=== PATIENT | male | born 1945 | race Caucasian/White ===

== ENCOUNTER 2017-03-26 17:44 | Observation (INO) | payer MEDICARE ==
[~2017-03-26] VITALS: Ht 172.7 cm; Wt 102.0 kg
[2017-03-26 17:46] VITALS: BP 129/64; PULSE 99; RESP 20; TEMP 98.8; O2SAT 95
[2017-03-26 19:42] VITALS: BP 140/72; PULSE 98; RESP 18; O2SAT 96
--- NOTE | 2017-03-26 19:59 | RADRPT ---
EXAM DATE/TIME: 03/26/2017 19:46 [place] COMPARISON: No previous studies available for comparison. INDICATIONS : Short of breath. MEDICAL HISTORY : None. SURGICAL HISTORY : CABG. ENCOUNTER: Initial ACUITY: 4 - 6 days PAIN SCORE: 0/10 LOCATION: Bilateral chest FINDINGS: There is evidence of prior median sternotomy probable cardiac surgery CABG. The heart is normal size with mild atherosclerotic changes of aorta. Vascularity is normal clear lung keller with hypoaeration .. CONCLUSION: No acute disease. Joey Harris MD on March 26, 2017 at 19:57 Board Certified Radiologist. This report was verified electronically.
[2017-03-26] MEDS ORDERED: SODIUM CHLORIDE 0.9% FLUSH 10 ML FLUSH IVF PRN (20:00)
[2017-03-26] MEDS ORDERED: FUROSEMIDE 40 MG/4 ML VIAL IVP ONE (20:00)
[2017-03-26 20:02] VITALS: RESP 18; O2SAT 96
--- NOTE | 2017-03-26 20:03 | PD ---
HPI Chief Complaint: Abnormal Results Time Seen by Provider: 19:38 Travel History International Travel<30 days: No Contact w/Intl Traveler<30days: No Traveled to known affect area: No History of Present Illness HPI 71-year-old male sent in by his PCP for reports of increased pedal edema as well as shortness of breath and dyspnea with exertion. Patient was recently diagnosed with atrial fibrillation and started on Elaquist this past week. Patient is also started on Bumex of an unknown dose, but the patient states his symptoms have not improved. Patient denies pain, fever, or abdominal discomfort. Currently he has no pain at all. He has no known drug allergies. PFSH Social History Alcohol Use: Yes Tobacco Use: No Substance Use: No Allergies-Medications (Allergen,Severity, Reaction): Coded Allergies: No Known Allergies (Unverified , 03/26/17) Reported Meds & Prescriptions Reported Meds & Active Scripts Active Reported Lorazepam 0.5 Mg Tab 0.5 Mg PO Q8H PRN Oxycontin (Oxycodone HCl) 30 Mg Tab 30 Mg PO Q8HR Oxycodone (Oxycodone HCl) 5 Mg Tab 5 Mg PO Q8HR Calcitriol 0.25 Mcg Cap 0.25 Mcg PO MWF Stool Softener (Docusate Calcium) 240 Mg Cap 250 Mg PO HS Allopurinol 100 Mg Tab 100 Mg PO HS Doxazosin (Doxazosin Mesylate) 2 Mg Tab 2 Mg PO HS Testosterone Topical (Testosterone) 50 Mg/5 Gram (1 %) Gel 100 Mg TOPICAL DAILY Pantoprazole (Pantoprazole Sodium) 40 Mg Tab 40 Mg PO DAILY Crestor (Rosuvastatin Calcium) 20 Mg Tab 20 Mg PO DAILY Eliquis (Apixaban) 5 Mg Tab 5 Mg PO BID Metoprolol Tartrate 100 Mg Tab 100 Mg PO BID Wellbutrin SR 12 HR (Bupropion HCl) 150 Mg Tab 150 Mg PO Q12HR Lisinopril 5 Mg Tab 5 Mg PO DAILY Vitamin D3 (Cholecalciferol) 2,000 Unit Cap 2,000 Units PO DAILY Review of Systems Except as stated in HPI: all other systems reviewed are Neg General / Constitutional: No: Fever Eyes: No: Visual changes HENT: No: Headaches Cardiovascular: Positive: Irregular Rhythm, Tachycardia, Dyspnea on exertion, Edema, No: Chest Pain or Discomfort, Palpitations, Diaphoresis, Syncope, Varicosities, Cyanosis, Varicosities, Phlebitis, Claudication Respiratory: Positive: Shortness of Breath Gastrointestinal: No: Abdominal Pain Genitourinary: No: Dysuria Musculoskeletal: No: Pain Skin: No Rash Neurologic: No: Weakness Psychiatric: No: Depression Endocrine: No: Polydipsia Hematologic/Lymphatic: No: Easy Bruising Physical Exam Narrative GENERAL: Moderately obese male in no acute distress. SKIN: Warm and dry. Normal color. Normal turgor. No rash. HEAD: Atraumatic. Normocephalic. EYES: Pupils equal and round. No scleral icterus. No injection or drainage. ENT: No nasal bleeding or discharge. Mucous membranes pink and moist. Pharynx is clear. Airway is patent. NECK: Trachea midline. Supple and nontender without lymphadenopathy. CARDIOVASCULAR: Irregular rate and irregular rhythm. No murmurs appreciated. RESPIRATORY: No accessory muscle use. Clear to auscultation. No wheezes or crackles appreciated Breath sounds equal bilaterally. GASTROINTESTINAL: Abdomen soft, non-tender, nondistended. Hepatic and splenic margins not palpable. MUSCULOSKELETAL: Extremities without clubbing, cyanosis, or 1-2+ edema is noted in both lower extremities. No obvious deformities. NEUROLOGICAL: Awake and alert. No obvious cranial nerve deficits. Motor grossly within normal limits. Five out of 5 muscle strength in the arms and legs. Normal speech. PSYCHIATRIC: Appropriate mood and affect; insight and judgment normal. Data Data Last Documented VS Vital Signs Date Time Temp Pulse Resp B/P (MAP) Pulse Ox O2 Delivery O2 Flow Rate FiO2 03/26/17 20:02 18 96 Room Air 03/26/17 19:42 98 03/26/17 17:46 98.8 Orders Orders Chest, Pa & Lat (03/26/17 ) Complete Blood Count With Diff (03/26/17 19:58) Comprehensive Metabolic Panel (03/26/17 19:58) B-Type Natriuretic Peptide (03/26/17 19:58) Act Partial Throm Time (Ptt) (03/26/17 19:58) Prothrombin Time / Inr (Pt) (03/26/17 19:58) Magnesium (Mg) (03/26/17 19:58) Ckmb (Isoenzyme) Profile (03/26/17 19:58) Troponin I (03/26/17 19:58) Urinalysis - C+S If Indicated (03/26/17 19:58) Iv Access Insert/Monitor (03/26/17 19:58) Electrocardiogram (03/26/17 19:58) Ecg Monitoring (03/26/17 19:58) Oximetry (03/26/17 19:58) Oxygen Administration (03/26/17 19:58) Sodium Chloride 0.9% Flush (Ns Flush) (03/26/17 20:00) Furosemide Inj (Lasix Inj) (03/26/17 20:00) CKMB (03/26/17 20:05) CKMB% (03/26/17 20:05) Place In Observation (03/26/17 ) Vital Signs (Adult) Q4H (03/26/17 22:11) Activity Oob With Assistance (03/26/17 22:11) Piece Cutter / Telemetry .CONTINUOUS (03/26/17 22:11) Intake + Output VERONICA.QSHIFT (03/26/17 22:11) Diet Heart Healthy (03/27/17 Breakfast) Diet Renal (03/27/17 Breakfast) Sodium Chloride 0.9% Flush (Ns Flush) (03/26/17 22:15) Sodium Chloride 0.9% Flush (Ns Flush) (03/27/17 09:00) Basic Metabolic Panel (Bmp) (03/27/17 06:00) Complete Blood Count With Diff (03/27/17 06:00) Pt Request For Service (03/26/17 22:11) Case Management Consult (03/26/17 22:11) Naloxone Inj (Narcan Inj) (03/26/17 22:15) Labs Laboratory Tests Test 03/26/17 20:05 03/26/17 20:54 White Blood Count 6.1 TH/MM3 Red Blood Count 5.26 MIL/MM3 Hemoglobin 13.3 GM/DL Hematocrit 41.7 % Mean Corpuscular Volume 79.4 FL Mean Corpuscular Hemoglobin 25.2 PG Mean Corpuscular Hemoglobin Concent 31.8 % Red Cell Distribution Width 16.6 % Platelet Count 152 TH/MM3 Mean Platelet Volume 7.7 FL Neutrophils (%) (Auto) 66.5 % Lymphocytes (%) (Auto) 22.3 % Monocytes (%) (Auto) 9.3 % Eosinophils (%) (Auto) 1.3 % Basophils (%) (Auto) 0.6 % Neutrophils # (Auto) 4.0 TH/MM3 Lymphocytes # (Auto) 1.3 TH/MM3 Monocytes # (Auto) 0.6 TH/MM3 Eosinophils # (Auto) 0.1 TH/MM3 Basophils # (Auto) 0.0 TH/MM3 CBC Comment DIFF FINAL Differential Comment Prothrombin Time 12.6 SEC Prothromb Time International Ratio 1.1 RATIO Activated Partial Thromboplast Time 33.8 SEC Blood Urea Nitrogen 25 MG/DL Creatinine 4.09 MG/DL Random Glucose 94 MG/DL Total Protein 6.7 GM/DL Albumin 2.9 GM/DL Calcium Level 8.7 MG/DL Magnesium Level 1.6 MG/DL Alkaline Phosphatase 71 U/L Aspartate Amino Transf (AST/SGOT) 25 U/L Alanine Aminotransferase (ALT/SGPT) 27 U/L Total Bilirubin 0.5 MG/DL Sodium Level 137 MEQ/L Potassium Level 4.1 MEQ/L Chloride Level 101 MEQ/L Carbon Dioxide Level 27.9 MEQ/L Anion Gap 8 MEQ/L Estimat Glomerular Filtration Rate 15 ML/MIN Total Creatine Kinase 258 U/L Creatine Kinase MB 2.4 NG/ML Troponin I 0.05 NG/ML B-Type Natriuretic Peptide 78 PG/ML Urine Color YELLOW Urine Turbidity HAZY Urine pH 5.5 Urine Specific [place] 1.008 Urine Protein NEG mg/dL Urine Glucose (UA) NEG mg/dL Urine Ketones NEG mg/dL Urine Occult Blood NEG Urine Nitrite NEG Urine Bilirubin NEG Urine Urobilinogen LESS THAN 2.0 MG/DL Urine Leukocyte Esterase NEG Urine RBC 2 /hpf Urine WBC 4 /hpf Urine Squamous Epithelial Cells <1 /hpf Urine Amorphous Sediment RARE Urine Bacteria RARE /hpf Urine Mucus FEW /lpf Microscopic Urinalysis Comment CULT NOT INDICATED MDM Medical Decision Making Medical Screen Exam Complete: Yes Emergency Medical Condition: Yes Medical Record Reviewed: Yes Differential Diagnosis Dyspnea with exertion. Bilateral pedal edema. A. fib. CHF. Narrative Course Patient appears medically stable at time of exam. EKG shows ectopic atrial tachycardia, this is reviewed with Dr. Gould. Labs ordered including CBC, CMP, cardiac panel, proBNP, and urinalysis. Chest x-ray is ordered. This x-ray shows no acute process per radiologist. CBC is unremarkable. Chemistries are remarkable for a BUN of 25, and a creatinine of 4.09 with an estimated GFR 15. BNP is 78. Albumin is 2.9. Coagulation studies showed PT of 12.6, APTT of 33.8, INR 1.1. Urinalysis is unremarkable. Call was placed to the hospitalist for his elevated creatinine. There is no previous creatinine on record to compare to. arrives and informs me that they were sent from the [facility] apprent[facility] office, Dr. Duran Austin, and his BUN was 3.0 with a GFR of 20 2 days ago. Patient discussed with Dr. Miller, who agrees to admit the patient to observation. Diagnosis Primary Impression: Elevated serum creatinine Additional Impression: Dyspnea on exertion Admitting Information Admitting Physician Requests: Observation Condition: Stable Ernst Ackerman Mar 26, 2017 20:03
[2017-03-26] MEDS ORDERED: OXYC-392 PO (20:35)
[2017-03-26] MEDS ORDERED: LISI-519 PO (20:35)
[2017-03-26] MEDS ORDERED: APIX5TAB PO (20:35)
[2017-03-26] MEDS ORDERED: OXYC30TA62 PO (20:35)
[2017-03-26] MEDS ORDERED: TEST2.5G TOPICAL (20:35)
[2017-03-26] MEDS ORDERED: VITA2000 PO (20:35)
[2017-03-26] MEDS ORDERED: DOCU1CAP25 PO (20:35)
[2017-03-26] MEDS ORDERED: DOXA1TAB35 PO (20:35)
[2017-03-26] MEDS ORDERED: CALC0.25 PO (20:35)
[2017-03-26] MEDS ORDERED: ALLO100T PO (20:35)
[2017-03-26] MEDS ORDERED: PANT40TA3 PO (20:35)
[2017-03-26] MEDS ORDERED: ROSU20 PO (20:35)
[2017-03-26] MEDS ORDERED: METO100T PO (20:35)
[2017-03-26] MEDS ORDERED: BUPR150CR PO (20:35)
[2017-03-26] MEDS ORDERED: LORA-373 PO (20:37)
[2017-03-26 21:01] LABS: BASOPHIL % 0.6 % (0.0-2.0); EOSINOPHIL # 0.1 TH/MM3 (0-0.4); EOSINOPHIL % 1.3 % (0.0-4.0); HEMATOCRIT 41.7 % (39.0-51.0); HEMO FLAGS DIFF FINAL; LYMPH % 22.3 % (9.0-44.0); LYMPHOCYTE # 1.3 TH/MM3 (1.0-4.8); MEAN CELL VOLUME 79.4 FL (80.0-100.0); MEAN CORPUSCULAR HEMOGLOBIN 25.2 PG (27.0-34.0); MEAN CORPUSCULAR HGB CONC 31.8 % (32.0-36.0); MONO % 9.3 % (0.0-8.0); NEUT % 66.5 % (16.0-70.0); PLATELET COUNT 152 TH/MM3 (150-450); RED BLOOD COUNT 5.26 MIL/MM3 (4.50-5.90); RED CELL DISTRIBUTION WIDTH 16.6 % (11.6-17.2); WHITE BLOOD COUNT 6.1 TH/MM3 (4.0-11.0)
[2017-03-26 21:08] LABS: APTT (PATIENT) 33.8 SEC (24.3-30.1); INTERNATIONAL NORMALIZED RATIO 1.1 RATIO; PROTHROMBIN TIME - PATIENT 12.6 SEC (9.8-11.6)
[2017-03-26 21:12] LABS: ANION GAP 8 MEQ/L (5-15); AST (GOT) 25 U/L (15-37); BICARBONATE 27.9 MEQ/L (21.0-32.0); BLOOD UREA NITROGEN 25 MG/DL (7-18); CHLORIDE 101 MEQ/L (98-107); GLOMERULAR FILTRATION RATE 15 ML/MIN (>89); MAGNESIUM 1.6 MG/DL (1.5-2.5); POTASSIUM 4.1 MEQ/L (3.5-5.1); SODIUM (NA) 137 MEQ/L (136-145)
[2017-03-26 21:13] LABS: ALT (GPT) 27 U/L (12-78)
[2017-03-26 21:17] LABS: ALKALINE PHOSPHATASE 71 U/L (45-117); CREATINE KINASE 258 U/L (39-308); TOTAL BILIRUBIN ADULT 0.5 MG/DL (0.2-1.0)
[2017-03-26 21:29] LABS: CKMB 2.4 NG/ML (0.5-3.6)
[2017-03-26 21:33] LABS: BACTERIA, URINE RARE /hpf; BLOOD, URINE NEG (NEG); COMMENT (UR) CULT NOT INDICATED; CULTURE IF INDICATED CULT NOT INDICATED; GLUCOSE,URINE NEG (NEG); KETONE, URINE NEG (NEG); MUCUS URINE FEW /lpf (OCC); NITRITE,URINE NEG (NEG); PH, URINE 5.5 (5.0-8.5); SQUAMOUS EPITHELIAL CELL URINE <1 /hpf (0-5); URINE COLOR YELLOW (YELLW/STRAW)
[2017-03-26] MEDS ORDERED: SODIUM CHLORIDE 0.9% FLUSH 10 ML FLUSH IV FLUSH PRN (22:15)
[2017-03-26] MEDS ORDERED: NALOXONE HCL 0.4 MG/ML AMP IV PUSH PRN (22:15)
[2017-03-26 22:46] VITALS: BP 102/58; PULSE 95; RESP 18; O2SAT 95
[2017-03-27] VITALS (9 sets, daily range): BP systolic 94–149; BP diastolic 55–80; PULSE 77–107; RESP 16–18; TEMP 98–99.7; O2SAT 90–95
[2017-03-27] MEDS ORDERED: SODIUM CHLOR 0.9% 1000 ML INJ 1,000 ML IV SCH (06:15)
--- NOTE | 2017-03-27 06:27 | HHI.HP ---
[facility] Ernst [facility] M.D. Admission Diagnosis Acute Renal Insufficientcy/Afib Diagnoses: Travel History International Travel<30 Days: No Contact w/Intl Traveler <30 Da: No Traveled to Known Affected Are: No History of Present Illness was feeling weak was somewhat taking too long to do simple things like balancing checkbook "got stuck" doing simple things has had problems with kidney issues- with creatinine getting skyrocketing was seen by his resource center teacher and sent here has had cabg in 2006 and not sure whether to do with this or combination of kidney and heart weakness kept continuing no nausea/ no vomiting/ no diarrhea no balck stool or red stool no urination problem no chest pain but did have some shortness of breath- wasnt even sure about it, until someone asked him in er was having dyspnea walking from mailbox to home also c/o bilateral LE swelling at ankles and lower lee with some redness and pitting edema c/o if only during physical exam- was forgetting to mention prior no on antibiotics no trauma Review of Systems Except as stated in HPI: all other systems reviewed are Neg Past Family Social History Past Medical History htn cad- cabg 2006 afib- recently diagnosed- chronic anticoagulation on eliquis renal artery stent- placed 2006- ckd Past Surgical History cabg 2007 renal artery stent in 2006 tonsilectomy at 6 yo right hand sx cholecystectomy 2003 Allergies: Coded Allergies: No Known Allergies (Unverified , 03/26/17) Family History mother may have had kidney problems, but not sure Social History used to smoke, quit 30yrs ago denies etoh abuse or drug abuse Physical Exam Vital Signs Vital Signs Date Time Temp Pulse Resp B/P (MAP) Pulse Ox O2 Delivery O2 Flow Rate FiO2 03/27/17 03:16 98.8 100 18 106/55 (72) 91 03/27/17 03:02 101 03/27/17 00:43 99.7 107 18 104/62 (76) 90 03/26/17 22:56 03/26/17 22:46 95 18 102/58 (73) 95 Room Air 03/26/17 20:02 18 96 Room Air 03/26/17 20:02 96 Room Air 03/26/17 19:42 98 18 140/72 (94) 96 Room Air 03/26/17 17:46 98.8 99 20 129/64 (85) 95 Room Air Physical Exam GENERAL: This is a well-nourished, well-developed patient, in no apparent distress. SKIN: bilateral LE redness, warmth, up to mid lee, bilateral pitting 2+ edema around ankle HEAD: Atraumatic. Normocephalic. No temporal or scalp tenderness. EYES: Pupils equal round and reactive. Extraocular motions intact. No scleral icterus. No injection or drainage. ENT: Nose without bleeding, purulent drainage or septal hematoma. Airway patent. NECK: Trachea midline. No JVD CARDIOVASCULAR: Regular rate and rhythm without murmurs, gallops, or rubs. RESPIRATORY: Clear to auscultation. Breath sounds equal bilaterally. No wheezes , rales, or rhonchi. GASTROINTESTINAL: Abdomen soft, non-tender, nondistended. No hepato-splenomegaly , or palpable masses. No guarding. MUSCULOSKELETAL: Extremities without clubbing, cyanosis, or edema. No calf tenderness. NEUROLOGICAL: Awake and alert. Motor and sensory grossly within normal limits. Normal speech. Laboratory Laboratory Tests Test 03/26/17 20:05 03/26/17 20:54 White Blood Count 6.1 Red Blood Count 5.26 Hemoglobin 13.3 Hematocrit 41.7 Mean Corpuscular Volume 79.4 Mean Corpuscular Hemoglobin 25.2 Mean Corpuscular Hemoglobin Concent 31.8 Red Cell Distribution Width 16.6 Platelet Count 152 Mean Platelet Volume 7.7 Neutrophils (%) (Auto) 66.5 Lymphocytes (%) (Auto) 22.3 Monocytes (%) (Auto) 9.3 Eosinophils (%) (Auto) 1.3 Basophils (%) (Auto) 0.6 Neutrophils # (Auto) 4.0 Lymphocytes # (Auto) 1.3 Monocytes # (Auto) 0.6 Eosinophils # (Auto) 0.1 Basophils # (Auto) 0.0 CBC Comment DIFF FINAL Differential Comment Prothrombin Time 12.6 Prothromb Time International Ratio 1.1 Activated Partial Thromboplast Time 33.8 Blood Urea Nitrogen 25 Creatinine 4.09 Random Glucose 94 Total Protein 6.7 Albumin 2.9 Calcium Level 8.7 Magnesium Level 1.6 Alkaline Phosphatase 71 Aspartate Amino Transf (AST/SGOT) 25 Alanine Aminotransferase (ALT/SGPT) 27 Total Bilirubin 0.5 Sodium Level 137 Potassium Level 4.1 Chloride Level 101 Carbon Dioxide Level 27.9 Anion Gap 8 Estimat Glomerular Filtration Rate 15 Total Creatine Kinase 258 Creatine Kinase MB 2.4 Troponin I 0.05 B-Type Natriuretic Peptide 78 Urine Color YELLOW Urine Turbidity HAZY Urine pH 5.5 Urine Specific [place] 1.008 Urine Protein NEG Urine Glucose (UA) NEG Urine Ketones NEG Urine Occult Blood NEG Urine Nitrite NEG Urine Bilirubin NEG Urine Urobilinogen LESS THAN 2.0 Urine Leukocyte Esterase NEG Urine RBC 2 Urine WBC 4 Urine Squamous Epithelial Cells <1 Urine Amorphous Sediment RARE Urine Bacteria RARE Urine Mucus FEW Microscopic Urinalysis Comment CULT NOT INDICATED Result Diagram: 03/26/17200403/26/172004 Imaging Last 48 hours Impressions Chest X-Ray 03/26/17 0000 Signed Impressions: Service Date/Time: Sunday, March 26, 2017 19:46 - CONCLUSION: No acute disease. MD Roslyn Wadsworthi VTE Risk Assessment Caprini VTE Risk Assessment: Mod/High Risk (score >= 2) Caprini Risk Assessment Model Point Value = 1 Point Value = 2 Point Value = 3 Point Value = 5 Age 41-60 Minor surgery BMI > 25 kg/m2 Swollen legs Varicose veins or History of unexplained or recurrent spontaneous Oral contraceptives or hormone replacement Sepsis (< 1 month) Serious lung disease, including pneumonia (< 1 month) Abnormal pulmonary function Acute myocardial infarction Congestive heart failure (< 1 month) History of inflammatory bowel disease Medical patient at bed rest Age 61-74 Arthroscopic surgery Major open surgery (> 45 min) Laparoscopic surgery (> 45 min) Malignancy Confined to bed (> 72 hours) Immobilizing plaster cast Central venous access Age >= 75 History of VTE Family history of VTE Factor V Leiden Prothrombin [id number] Lupus anticoagulant Anticardiolipin antibodies Elevated serum homocysteine Heparin-induced thrombocytopenia Other congenital or acquired thrombophilia Stroke (< 1 month) Elective arthroplasty Hip, pelvis, or leg fracture Acute spinal cord injury (< 1 month) Prophylaxis Regimen Total Risk Factor Score Risk Level Prophylaxis Regimen 0-1 Low Early ambulation 2 Moderate Order ONE of the following: *Sequential Compression Device (SCD) *Heparin 5000 units SQ BID 3-4 Higher Order ONE of the following medications: *Heparin 5000 units SQ TID *Enoxaparin/Lovenox 40 mg SQ daily (WT < 150 kg, CrCl > 30 mL/min) *Enoxaparin/Lovenox 30 mg SQ daily (WT < 150 kg, CrCl > 10-29 mL/min) *Enoxaparin/Lovenox 30 mg SQ BID (WT < 150 kg, CrCl > 30 mL/min) AND/OR *Sequential Compression Device (SCD) 5 or more Highest Order ONE of the following medications: *Heparin 5000 units SQ TID (Preferred with Epidurals) *Enoxaparin/Lovenox 40 mg SQ daily (WT < 150 kg, CrCl > 30 mL/min) *Enoxaparin/Lovenox 30 mg SQ daily (WT < 150 kg, CrCl > 10-29 mL/min) *Enoxaparin/Lovenox 30 mg SQ BID (WT < 150 kg, CrCl > 30 mL/min) AND *Sequential Compression Device (SCD) Assessment and Plan Assessment and Plan Impression: acute on chrnoic ckd : With symptoms of weakness/lethargy/occasional shortness of breath bilateral le cellulitis Plan: Will start patient on small dose of IV fluids to see if this acute decompensation is secondary to dehydration. Watch for fluid overload. His BNP is normal, chest x-ray is clear. So far not expecting CHF. Start patient on cefepime 1 g IV every 12 hours for bilateral lower extremity cellulitis. Resume rest of his home medications. DVT prophylaxis on Erika Lorenzana MD Mar 27, 2017 06:27
[2017-03-27] MEDS ORDERED: LORazepam 0.5 MG TAB PO PRN (06:45)
[2017-03-27] MEDS: SODIUM CHLORIDE 0.9% FLUSH 10 ML FLUSH IV FLUSH SCH ×2 (09:00→21:49)
[2017-03-27] MEDS ORDERED: CHOLECALCIFEROL (VIT D3) 1000 UNIT TAB PO SCH (09:00)
[2017-03-27] MEDS ORDERED: CALCITRIOL 0.25 MCG CAP PO SCH (09:00)
[2017-03-27 09:07] LABS: AUTOMATED NEUTROPHIL # 4.6 TH/MM3 (1.8-7.7); BASOPHIL # 0.1 TH/MM3 (0-0.2); BASOPHIL % 0.8 % (0.0-2.0); EOSINOPHIL # 0.1 TH/MM3 (0-0.4); EOSINOPHIL % 1.3 % (0.0-4.0); HEMATOCRIT 39.1 % (39.0-51.0); HEMO FLAGS DIFF FINAL; LYMPH % 18.5 % (9.0-44.0); LYMPHOCYTE # 1.2 TH/MM3 (1.0-4.8); MEAN CELL VOLUME 78.8 FL (80.0-100.0); MEAN CORPUSCULAR HEMOGLOBIN 25.6 PG (27.0-34.0); MEAN CORPUSCULAR HGB CONC 32.5 % (32.0-36.0); MONO % 9.4 % (0.0-8.0); PLATELET COUNT 144 TH/MM3 (150-450); RED BLOOD COUNT 4.96 MIL/MM3 (4.50-5.90); RED CELL DISTRIBUTION WIDTH 16.2 % (11.6-17.2); WHITE BLOOD COUNT 6.5 TH/MM3 (4.0-11.0)
[2017-03-27 09:26] LABS: BICARBONATE 28.1 MEQ/L (21.0-32.0); POTASSIUM 4.3 MEQ/L (3.5-5.1)
[2017-03-27] MEDS: CEFEPIME INJ 1,000 MG in SODIUM CHLORIDE 0.9% INJ 100 ML IV SCH (10:03)
[2017-03-27] MEDS: APIXABAN 5 MG TABLET PO SCH ×2 (10:04→21:48)
[2017-03-27] MEDS: METOPROLOL TARTRATE 100 MG TAB PO SCH ×2 (10:05→21:47)
[2017-03-27] MEDS: buPROPion HCL 150 MG SUSTAINED RELEASE TAB PO SCH ×2 (10:05→21:47)
[2017-03-27] MEDS: PANTOPRAZOLE SOD 40 MG DELAYED RELEASE TAB PO SCH (10:06)
[2017-03-27] MEDS: ATORVASTATIN 40 MG TAB PO SCH (10:06)
--- NOTE | 2017-03-27 11:01 | HHI.PR ---
Subjective Remarks Follow up for acute renal failure, confusion, cellulitis. The patient is seen with his at bedside. She reports the patient's creatinine was just around 2 a few weeks ago, only this week it increased above 4. The patient and believe his mentation is slightly better today however he is still forgetful at times. They also believe his bilateral lower extremity erythema and edema is slightly improved overnight. Denies any fevers/chills. Denies any chest pain. He does report shortness of breath, worse with exertion. He has not yet attempted ambulation today. He has no other medical complaints to report at this time. Objective Vitals Vital Signs Date Time Temp Pulse Resp B/P (MAP) Pulse Ox O2 Delivery O2 Flow Rate FiO2 03/27/17 08:00 98.7 100 18 116/65 (82) 92 03/27/17 03:16 98.8 100 18 106/55 (72) 91 03/27/17 03:02 101 03/27/17 00:43 99.7 107 18 104/62 (76) 90 03/26/17 22:56 03/26/17 22:46 95 18 102/58 (73) 95 Room Air 03/26/17 20:02 18 96 Room Air 03/26/17 20:02 96 Room Air 03/26/17 19:42 98 18 140/72 (94) 96 Room Air 03/26/17 17:46 98.8 99 20 129/64 (85) 95 Room Air Result Diagram: 03/27/17 0757 03/27/17 0757 Imaging Last Impressions Chest X-Ray 03/26/17 0000 Signed Impressions: Service Date/Time: Sunday, March 26, 2017 19:46 - CONCLUSION: No acute disease. Joey Harris MD Objective Remarks GENERAL: Well-nourished, well-developed pleasant elderly male patient in [facility]. SKIN: Warm and dry. No rash. HEENT: Normocephalic. Atraumatic. Pupils equal and round. Mucous membranes pink and moist. CARDIOVASCULAR: Regular rate and rhythm. S1, S2 noted. No murmur appreciated. RESPIRATORY: No accessory muscle use. Clear to auscultation. No crackles. Breath sounds equal bilaterally. GASTROINTESTINAL: Abdomen soft, non-tender, nondistended. Normoactive bowel sounds x4. MUSCULOSKELETAL: No obvious deformities. Bilateral lower extremities from ankles to mid lee with mild erythema and 1+ pitting edema. NEUROLOGICAL: Awake and alert. No obvious cranial nerve deficits. Motor grossly within normal limits. 5/5 muscle strength in bilateral upper and lower extremities. Normal speech. PSYCHIATRIC: Appropriate mood and affect; insight and judgment normal. Medications and IVs Current Medications Medications (Trade) Dose Ordered Sig/Argenis Route Start Time Stop Time Status Last Admin (NS Flush) 2 ml UNSCH PRN IVF 03/26/17 20:00 (NS Flush) 2 ml UNSCH PRN IV FLUSH 03/26/17 22:15 (NS Flush) 2 ml BID IV FLUSH 03/27/17 09:00 (Narcan Inj) 0.4 mg UNSCH PRN IV PUSH 03/26/17 22:15 Sodium Chloride 1,000 ml @ 84 mls/hr [id number] IV 03/27/17 06:15 (Zyloprim) 100 mg HS PO 03/27/17 21:00 (Eliquis) 5 mg BID PO 03/27/17 09:00 03/27/17 10:04 (Wellbutrin Sr) 150 mg Q12HR PO 03/27/17 09:00 03/27/17 10:05 (Rocaltrol) 0.25 mcg BID PO 03/27/17 09:00 (Vitamin D3) 2,000 units DAILY PO 03/27/17 09:00 03/27/17 10:04 (Surfak) 250 mg HS PO 03/27/17 21:00 (Cardura) 2 mg HS PO 03/27/17 21:00 (Ativan) 0.5 mg Q8H PRN PO 03/27/17 06:45 (Lopressor) 100 mg BID PO 03/27/17 09:00 03/27/17 10:05 (Protonix) 40 mg DAILY PO 03/27/17 09:00 03/27/17 10:06 (OxyCONTIN CR) 30 mg Q8HR PO 03/27/17 14:00 (Lipitor) 40 mg DAILY PO 03/27/17 09:00 03/27/17 10:06 Cefepime HCl 1000 mg/Sodium Chloride 100 ml @ 200 mls/hr Q24H IV 03/27/17 08:00 03/27/17 10:03 (Roxicodone) 5 mg Q8HR PRN PO 03/27/17 14:00 A/P Assessment and Plan 71-year-old male with history of CKD, HTN, CAD s/p CABG, atrial fibrillation on Eliquis, renal artery stenosis s/p stent, presents with increasing confusion, BLE erythema, and worsening renal function, sent by state trooper Acute Renal Failure: with hx of CKD, previous baseline Creatinine around 2, now Cr 4.09. Unclear etiology. -Admitting physician ordered IVF to eval for acute decompensation secondary to dehydration -Monitor for fluid overload, CXR reviewed and clear, BNP wnl, no CHF expected -Consult patient's state trooper Dr. Austin -Monitor BMP daily -avoid nephrotoxins Bilateral Lower Extremity Cellulitis: BLE with erythema/edema. -Started on antibiotics with IV Cefepime -monitor for improvement -can likely transition to oral abx tomorrow Atrial Fibrillation: rate currently around 100. -continue patient's anticoagulation with Eliquis -continue patient's metoprolol 100mg bid, consider adjusting dosing for better rate control however caution with hypotension CAD/HTN/HLD: chronic, stable -continue home medications including metoprolol, statin -monitor BP All other medical conditions stable, continue home medications as appropriate. DVT Prophylaxis: on Eliquis Kalyn Zamora PA-C Mar 27, 2017 11:01 am
--- NOTE | 2017-03-27 12:32 | PD.CONS ---
HPI Service Nephrology Consult Requested By Dr. Miller Reason for Consult Known CKD. Sent from office for eval of ARF Primary Care Physician Ernst Hernandez M.D. History of Present Illness The patient is a 71 yo [place] male who is known to our services for CKD. He present to the office yesterday for early appointment as renal panel drawn on showed worsening of his renal functions. States that in the past month or so he has not been feeling well. confirms the same. He has been more fatigued, developing LE edema, chills, nausea, and poor appetite. He also endorses increased confusion and mental fogginess. For some time, has been experiencing some mid chest pain that he describes as a poking sensation that lasts only a second then resolves. Thought initially it was related to exercising, but started to occur even at rest. Has had cardiac work up in the past that was negative, but decided to order an at home departure clerk that picked up episode of atrial fibrillation. He went back to Dr. Sandra on 03/20 and was started on Eliquis 5mg BID. ECG in office there showed NSR. He went to his PCP on 03/22 and was started on Bumex 1mg daily for his LE edema, but did not improve. Had labs drawn on 03/22 that showed a rise in SCr at 3.01 ( baseline 2.3) and he called office for early appointment. On exam yesterday, he had evidence of significant fluid retention. Given his rapid decline and clinical appearance, he was advised to come to the ED for evaluation. 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 Had renal doppler study performed 11/09/16 that was nondiagnostic of restenosis of right renal artery secondary to stent placement and could not rule out left sided stenosis. CTA nor MRA was opted for at that point given severe impairment in renal functions. Incidentally noted was a 1.3cm lesion in left mid-cortex that is noted as complex cyst versus solid mass that was confirmed with noncontrast MRI on 11/14/16; recommended to follow up in 6 months for stability, Feeling better on exam today, but is notably frustrated with current events. Says he just wants an answer to what is going on. Received Lasix 40mg IVP x1 last evening. Noted IVF ordered, however, patient says was only started this AM. Started on Cefepime for suspected LE cellulitis. Admitting SCr 4.09 with eGFR at 15. Slight improvement overnight to 3.77 and eGFR 15 Baseline SCr 2.3 with eGFR 27 (Tracey Webb) Review of Systems Constitutional: COMPLAINS OF: Fatigue, Weight gain (10 lbs in 2 months), Chills , Change in appetite Cardiovascular: COMPLAINS OF: Lower Extremity Edema Gastrointestinal: COMPLAINS OF: Nausea (Tracey Webb) Past Family Social History Allergies: Coded Allergies: No Known Allergies (Unverified , 03/26/17) Past Medical History CKD stage 4 Right sided renal artery stenosis corrected with angioplasty and stent in 2006 HTN EN Nephrolithiasis Gout Hx of ischemic colitis Past Surgical History CABG Renal artery angioplasty with stenting Reported Medications Reported Meds & Active Scripts Active Reported Lorazepam 0.5 Mg Tab 0.5 Mg PO Q8H PRN Oxycontin (Oxycodone HCl) 30 Mg Tab 30 Mg PO Q8HR Oxycodone (Oxycodone HCl) 5 Mg Tab 5 Mg PO Q8HR Calcitriol 0.25 Mcg Cap 0.25 Mcg PO MWF Stool Softener (Docusate Calcium) 240 Mg Cap 250 Mg PO HS Allopurinol 100 Mg Tab 100 Mg PO HS Doxazosin (Doxazosin Mesylate) 2 Mg Tab 2 Mg PO HS Testosterone Topical (Testosterone) 50 Mg/5 Gram (1 %) Gel 100 Mg TOPICAL DAILY Pantoprazole (Pantoprazole Sodium) 40 Mg Tab 40 Mg PO DAILY Crestor (Rosuvastatin Calcium) 20 Mg Tab 20 Mg PO DAILY Eliquis (Apixaban) 5 Mg Tab 5 Mg PO BID Metoprolol Tartrate 100 Mg Tab 100 Mg PO BID Wellbutrin SR 12 HR (Bupropion HCl) 150 Mg Tab 150 Mg PO Q12HR Lisinopril 5 Mg Tab 5 Mg PO DAILY Vitamin D3 (Cholecalciferol) 2,000 Unit Cap 2,000 Units PO DAILY Active Ordered Medications Current Medications Medications (Trade) Dose Ordered Sig/Argenis Route Start Time Stop Time Status Last Admin (NS Flush) 2 ml UNSCH PRN IVF 03/26/17 20:00 (NS Flush) 2 ml UNSCH PRN IV FLUSH 03/26/17 22:15 (NS Flush) 2 ml BID IV FLUSH 03/27/17 09:00 03/27/17 09:00 (Narcan Inj) 0.4 mg UNSCH PRN IV PUSH 03/26/17 22:15 (Zyloprim) 100 mg HS PO 03/27/17 21:00 (Eliquis) 5 mg BID PO 03/27/17 09:00 03/27/17 10:04 (Wellbutrin Sr) 150 mg Q12HR PO 03/27/17 09:00 03/27/17 10:05 (Vitamin D3) 2,000 units DAILY PO 03/27/17 09:00 03/27/17 10:04 (Surfak) 250 mg HS PO 03/27/17 21:00 (Cardura) 2 mg HS PO 03/27/17 21:00 (Ativan) 0.5 mg Q8H PRN PO 03/27/17 06:45 (Lopressor) 100 mg BID PO 03/27/17 09:00 03/27/17 10:05 (Protonix) 40 mg DAILY PO 03/27/17 09:00 03/27/17 10:06 (OxyCONTIN CR) 30 mg Q8HR PO 03/27/17 14:00 03/27/17 14:26 (Lipitor) 40 mg DAILY PO 03/27/17 09:00 03/27/17 10:06 Cefepime HCl 1000 mg/Sodium Chloride 100 ml @ 200 mls/hr Q24H IV 03/27/17 08:00 03/27/17 10:03 (Roxicodone) 5 mg Q8HR PRN PO 03/27/17 14:00 (Rocaltrol) 0.25 mcg MoWeFr PO 03/28/17 21:00 Family History [place] Social History and lives locally with Denies tobacco use, no EtOH, no illicits (Tracey Webb) Physical Exam Vital Signs Vital Signs Date Time Temp Pulse Resp B/P (MAP) Pulse Ox O2 Delivery O2 Flow Rate FiO2 03/27/17 12:00 99.2 101 18 111/58 (75) 93 03/27/17 08:00 98.7 100 18 116/65 (82) 92 03/27/17 03:16 98.8 100 18 106/55 (72) 91 03/27/17 03:02 101 03/27/17 00:43 99.7 107 18 104/62 (76) 90 03/26/17 22:56 03/26/17 22:46 95 18 102/58 (73) 95 Room Air 03/26/17 20:02 18 96 Room Air 03/26/17 20:02 96 Room Air 03/26/17 19:42 98 18 140/72 (94) 96 Room Air 03/26/17 17:46 98.8 99 20 129/64 (85) 95 Room Air Physical Exam GENERAL: NAD. Slightly agitated. SKIN: Warm and dry. HEAD: Atraumatic. Normocephalic. EYES: Pupils equal and round. No scleral icterus. No injection or drainage. ENT: No nasal bleeding or discharge. Mucous membranes pink and moist. NECK: Trachea midline. No JVD. CARDIOVASCULAR: Slightly tachy at 102 in NSR RESPIRATORY: No accessory muscle use. Clear to auscultation. Breath sounds equal bilaterally. GASTROINTESTINAL: Abdomen soft, non-tender, nondistended. Hepatic and splenic margins not palpable. MUSCULOSKELETAL: Extremities without clubbing, cyanosis. Feet and anterior legs with erythema and warm to touch. 1+ pitting edema pre-tibial bilat NEUROLOGICAL: Awake and alert. Normal speech. PSYCHIATRIC: Appropriate mood and affect; insight and judgment normal. Laboratory Laboratory Tests Test 03/26/17 20:05 03/26/17 20:54 03/27/17 07:57 White Blood Count 6.1 6.5 Red Blood Count 5.26 4.96 Hemoglobin 13.3 12.7 Hematocrit 41.7 39.1 Mean Corpuscular Volume 79.4 78.8 Mean Corpuscular Hemoglobin 25.2 25.6 Mean Corpuscular Hemoglobin Concent 31.8 32.5 Red Cell Distribution Width 16.6 16.2 Platelet Count 152 144 Mean Platelet Volume 7.7 8.0 Neutrophils (%) (Auto) 66.5 70.0 Lymphocytes (%) (Auto) 22.3 18.5 Monocytes (%) (Auto) 9.3 9.4 Eosinophils (%) (Auto) 1.3 1.3 Basophils (%) (Auto) 0.6 0.8 Neutrophils # (Auto) 4.0 4.6 Lymphocytes # (Auto) 1.3 1.2 Monocytes # (Auto) 0.6 0.6 Eosinophils # (Auto) 0.1 0.1 Basophils # (Auto) 0.0 0.1 CBC Comment DIFF FINAL DIFF FINAL Differential Comment Prothrombin Time 12.6 Prothromb Time International Ratio 1.1 Activated Partial Thromboplast Time 33.8 Blood Urea Nitrogen 25 25 Creatinine 4.09 3.88 Random Glucose 94 92 Total Protein 6.7 Albumin 2.9 Calcium Level 8.7 8.7 Magnesium Level 1.6 Alkaline Phosphatase 71 Aspartate Amino Transf (AST/SGOT) 25 Alanine Aminotransferase (ALT/SGPT) 27 Total Bilirubin 0.5 Sodium Level 137 136 Potassium Level 4.1 4.3 Chloride Level 101 100 Carbon Dioxide Level 27.9 28.1 Anion Gap 8 8 Estimat Glomerular Filtration Rate 15 15 Total Creatine Kinase 258 Creatine Kinase MB 2.4 Troponin I 0.05 B-Type Natriuretic Peptide 78 Urine Color YELLOW Urine Turbidity HAZY Urine pH 5.5 Urine Specific [place] 1.008 Urine Protein NEG Urine Glucose (UA) NEG Urine Ketones NEG Urine Occult Blood NEG Urine Nitrite NEG Urine Bilirubin NEG Urine Urobilinogen LESS THAN 2.0 Urine Leukocyte Esterase NEG Urine RBC 2 Urine WBC 4 Urine Squamous Epithelial Cells <1 Urine Amorphous Sediment RARE Urine Bacteria RARE Urine Mucus FEW Microscopic Urinalysis Comment CULT NOT INDICATED (Tracey Webb) Result Diagram: 03/27/17 0757 03/27/17 0757 Imaging Last Impressions Renal Ultrasound 03/27/17 0000 Signed Impressions: Service Date/Time: Monday, March 27, 2017 13:41 - CONCLUSION: 1. No evidence of hydronephrosis. Right renal stent in place. 2. There is thinning of the renal parenchyma bilaterally. 3. Bilateral benign-appearing renal cysts. 4. Nonspecific hypoechoic density in the midpole left kidney measuring 1.8 cm. This could be a complex cyst versus mass. There are no prior studies for comparison. Recommend CT scan of the abdomen and pelvis with IV contrast for further evaluation. James Castellon MD Chest X-Ray 03/26/17 0000 Signed Impressions: Service Date/Time: Sunday, March 26, 2017 19:46 - CONCLUSION: No acute disease. Joey Harris MD (Tracey Webb) Assessment and Plan Problem List: (1) Acute renal failure (ARF) ICD Codes: N17.9 - Acute kidney failure, unspecified Plan: Etiology of renal failure is not entire clear at the present. He did improve overnight with diuretics, so there is a potential for cardiac decompensation given new diagnosis of atrial fibrillation and edema. We will request copy of echo done in January as he has no known hx of cardiomyopathy or CHF. There is a concern of potential re-stenosis of renal artery given his acute decline in renal functions and edema. Typically blood pressure becomes quite elevated, and his pressure has been well controlled and now slightly hypotensive. We are going to check urine for eosinophils as well as complement levels to help rule out cholesterol embolic disease. Will also check ANCA and serology. Renal US to be ordered to rule out obstructive process. Consideration to be given to check CT angiogram as this is a more sensitive and specific test to rule out renal artery stenosis, however, is at higher risk of further renal injury with contrast exposure that may require dialytic intervention. Hold IVF given edema. Will follow with labs in the AM. Medications should be adjusted for CKD. Avoid gadolinium (2) Hypertension ICD Codes: I10 - Essential (primary) hypertension Plan: with hypotension in house. Lisinopril held. Monitor. (3) History of renal artery stenosis ICD Codes: Z86.79 - Personal history of other diseases of the circulatory system Plan: in 2006. As above, may consider CTA to rule out restenosis (4) Cellulitis ICD Codes: L03.90 - Cellulitis, unspecified Plan: Tx as per primary BCx ordered (5) Edema ICD Codes: R60.9 - Edema, unspecified Plan: Improved overnight with Furosemide. Will obtain recent echo report done outpatient. May recommend opinion from Dr. Sandra whom the patient is known to. (6) Atrial fibrillation ICD Codes: I48.91 - Unspecified atrial fibrillation Plan: NSR at the present. Started on Eliquis 03/20 (7) Secondary hyperparathyroidism (of renal origin) ICD Codes: N25.81 - Secondary hyperparathyroidism of renal origin Plan: Continue on Calcitriol 0.25mcg MWF. (Tracey Webb) Assessment and Plan The exam, history, and the medical decision-making described in the above note were completed with the assistance of the STEPHANIE. I reviewed and agree with the findings presented. I attest that I had a [id number] encounter with the patient on the same day, and personally performed and documented my assessment and findings in the medical record. (Giuseppe Austin MD) Tracey Webb Mar 27, 2017 12:32 Giuseppe Austin MD Mar 28, 2017 19:08
[2017-03-27] MEDS: oxyCODONE HCL 10 MG CONTROLLED RELEASE TAB PO SCH ×2 (14:26→21:48)
--- NOTE | 2017-03-27 15:06 | RADRPT ---
EXAM DATE/TIME: 03/27/2017 13:41 [facility] COMPARISON: No previous studies available for comparison. EXTERNAL COMPARISON : [facility], US RENAL ARTERIES & VEINS DOPPLER, November 09, 2016, MRI ABDOMEN WITHOUT CONTRAST, Ju 2016. INDICATIONS : Abnormal labs. MEDICAL HISTORY : Myocardial infarction. Hypercholesterolemia. Gastroesophageal reflux disease. Hypertension. CAD. Slee p apnea. Colitis. Chronic constipation. SURGICAL HISTORY : Tonsillectomy. Cholecystectomy. Right hand surgery. Right knee surgery. Renal artery stent. ENCOUNTER: Initial ACUITY: 1 day PAIN SCORE: 0/10 LOCATION: Bilateral flank MEASUREMENTS: RIGHT KIDNEY: 9.6 x 5.9 x 5.2 cm 9.6 x 5.2 x 4.6 cm FINDINGS: RIGHT KIDNEY: There is some thinning of the renal cortex. There is no evidence of hydronephrosis. There is a stent in place in the right kidney. There is several benign-appearing cysts associated with the right kidne y. There is a cyst in the midpole measuring 1.2 cm. There is a cyst in the midpole measuring 6 mm. Th ere is a cyst in the upper upper pole measuring 2.6 cm. LEFT KIDNEY: There is thinning of the renal cortex. There is no hydronephrosis. There is a cyst measuring 2.8 x 3. 5 cm. There is another cyst measuring 1.5 cm. There is a hypoechoic area in the midpole measuring 1.8 cm. BLADDER: Within normal limits given the degree of distension. CONCLUSION: 1. No evidence of hydronephrosis. Right renal stent in place. 2. There is thinning of the renal parenchyma bilaterally. 3. Bilateral benign-appearing renal cysts. 4. Nonspecific hypoechoic density in the midpole left kidney measuring 1.8 cm. This could be a comple x cyst versus mass. There are no prior studies for comparison. Recommend CT scan of the abdomen and p luiz with IV contrast for further evaluation. James Castellon MD on March 27, 2017 at 15:00 Board Certified Radiologist. This report was verified electronically.
[2017-03-27] MEDS: DOXAZOSIN MESYLATE 2 MG TAB PO SCH (21:47)
[2017-03-27] MEDS: DOCUSATE CALCIUM 240 MG CAP PO SCH (21:47)
[2017-03-27] MEDS: ALLOPURINOL 100 MG TAB PO SCH (21:48)
[2017-03-27 22:35] LABS: TOTAL PROTEIN SPE 6.4 GM/DL (6.0-7.6)
[2017-03-27 22:48] LABS: KAPPA LAMBDA RATIO 1.79 (1.57-3.93)
[2017-03-28 03:41] VITALS: BP_SYST 100; BP_SYST 134; BP_DIAS 56; BP_DIAS 72; PULSE 73; PULSE 91; RESP 17; TEMP 98.3; TEMP 98.5; O2SAT 94; O2SAT 97
--- NOTE | 2017-03-28 07:56 | EKG ---
Date Performed: 03/26/2017 Time Performed: 20:11:48 PTAGE: 71 years EKG: ECTOPIC ATRIAL TACHYCARDIA BORDERLINE LEFT AXIS DEVIATION BORDERLINE LVH NONSPECIFIC ST-T C HANGE ABNORMAL ECG NO PREVIOUS TRACING DOCTOR: Marco Antonio Ames Interpretating Date/Time 03/28/2017 07:54:41
[2017-03-28] MEDS: CEFEPIME INJ 1,000 MG in SODIUM CHLORIDE 0.9% INJ 100 ML IV SCH (08:00)
[2017-03-28] MEDS: oxyCODONE HCL 10 MG CONTROLLED RELEASE TAB PO SCH ×3 (08:09→23:05)
[2017-03-28] MEDS ORDERED: CHOLECALCIFEROL (VIT D3) 5000 UNIT CAP PO ONE (08:15)
[2017-03-28 08:30] VITALS: BP 109/69; PULSE 92; RESP 20; TEMP 98.3; O2SAT 97
[2017-03-28 08:36] LABS: HEMATOCRIT 40.5 % (39.0-51.0); MEAN CELL VOLUME 78.7 FL (80.0-100.0); MEAN CORPUSCULAR HEMOGLOBIN 25.6 PG (27.0-34.0); MEAN CORPUSCULAR HGB CONC 32.5 % (32.0-36.0); PLATELET COUNT 148 TH/MM3 (150-450); RED BLOOD COUNT 5.14 MIL/MM3 (4.50-5.90); RED CELL DISTRIBUTION WIDTH 16.1 % (11.6-17.2); REVIEW FLAG FINAL
[2017-03-28] MEDS: APIXABAN 5 MG TABLET PO SCH ×2 (09:00→23:03)
[2017-03-28] MEDS: buPROPion HCL 150 MG SUSTAINED RELEASE TAB PO SCH ×2 (09:00→23:03)
[2017-03-28] MEDS: SODIUM CHLORIDE 0.9% FLUSH 10 ML FLUSH IV FLUSH SCH ×2 (09:00→21:00)
[2017-03-28] MEDS: ATORVASTATIN 40 MG TAB PO SCH (09:00)
[2017-03-28] MEDS: METOPROLOL TARTRATE 100 MG TAB PO SCH ×2 (09:00→23:03)
[2017-03-28] MEDS: PANTOPRAZOLE SOD 40 MG DELAYED RELEASE TAB PO SCH (09:00)
[2017-03-28 09:02] LABS: BICARBONATE 27.7 MEQ/L (21.0-32.0); POTASSIUM 3.7 MEQ/L (3.5-5.1)
--- NOTE | 2017-03-28 09:12 | HHI.PR ---
Subjective Remarks Follow up for acute renal failure, confusion, cellulitis. The patient is seen again with at bedside. She reports he looks much improved compared to the last few days. The patient reports his bilateral lower extremity edema and erythema has much improved. He denies any fevers/chills. He is urinating without difficulty. Denies any chest pain, shortness of breath, abdominal pain, nausea/vomiting. He has no other medical complaints at this time. Objective Vitals Vital Signs Date Time Temp Pulse Resp B/P (MAP) Pulse Ox O2 Delivery O2 Flow Rate FiO2 03/28/17 03:41 98.5 91 17 100/56 (71) 94 03/27/17 23:33 98.7 92 17 94/61 (72) 94 03/27/17 21:00 91 03/27/17 20:07 98.7 93 16 96/60 (72) 95 03/27/17 16:00 98.0 87 18 124/63 (83) 92 03/27/17 15:26 20 03/27/17 12:00 99.2 101 18 111/58 (75) 93 I/O 03/27/17 03/27/17 03/27/17 03/28/17 03/28/17 03/28/17 07:00 15:00 23:00 07:00 15:00 23:00 Intake Total 100 ml 1260 ml 400 ml Balance 100 ml 1260 ml 400 ml Intake Oral 960 ml 400 ml IV Total 100 ml 300 ml # Voids 5 4 # Bowel Movements 0 Result Diagram: 03/28/17 0710 03/28/17 0710 Imaging Last Impressions Renal Ultrasound 03/27/17 0000 Signed Impressions: Service Date/Time: Monday, March 27, 2017 13:41 - CONCLUSION: 1. No evidence of hydronephrosis. Right renal stent in place. 2. There is thinning of the renal parenchyma bilaterally. 3. Bilateral benign-appearing renal cysts. 4. Nonspecific hypoechoic density in the midpole left kidney measuring 1.8 cm. This could be a complex cyst versus mass. There are no prior studies for comparison. Recommend CT scan of the abdomen and pelvis with IV contrast for further evaluation. James Castellon MD Chest X-Ray 03/26/17 0000 Signed Impressions: Service Date/Time: Sunday, March 26, 2017 19:46 - CONCLUSION: No acute disease. Joey Harris MD Objective Remarks GENERAL: Well-nourished, well-developed pleasant elderly male patient in [facility]. SKIN: Warm and dry. No rash. HEENT: Normocephalic. Atraumatic. Pupils equal and round. Mucous membranes pink and moist. CARDIOVASCULAR: Regular rate and rhythm. S1, S2 noted. No murmur appreciated. RESPIRATORY: No accessory muscle use. Clear to auscultation. No crackles. Breath sounds equal bilaterally. GASTROINTESTINAL: Abdomen soft, non-tender, nondistended. Normoactive bowel sounds x4. MUSCULOSKELETAL: No obvious deformities. Bilateral lower extremities from ankles to mid lee with minimal erythemal; edema resolved. NEUROLOGICAL: Awake and alert. No obvious cranial nerve deficits. Motor grossly within normal limits. Normal speech. PSYCHIATRIC: Appropriate mood and affect; insight and judgment normal. Medications and IVs Current Medications Medications (Trade) Dose Ordered Sig/Argenis Route Start Time Stop Time Status Last Admin (NS Flush) 2 ml UNSCH PRN IVF 03/26/17 20:00 (NS Flush) 2 ml UNSCH PRN IV FLUSH 03/26/17 22:15 (NS Flush) 2 ml BID IV FLUSH 03/27/17 09:00 03/27/17 21:49 (Narcan Inj) 0.4 mg UNSCH PRN IV PUSH 03/26/17 22:15 (Zyloprim) 100 mg HS PO 03/27/17 21:00 03/27/17 21:48 (Eliquis) 5 mg BID PO 03/27/17 09:00 03/27/17 21:48 (Wellbutrin Sr) 150 mg Q12HR PO 03/27/17 09:00 03/27/17 21:47 (Surfak) 250 mg HS PO 03/27/17 21:00 03/27/17 21:47 (Cardura) 2 mg HS PO 03/27/17 21:00 03/27/17 21:47 (Ativan) 0.5 mg Q8H PRN PO 03/27/17 06:45 (Lopressor) 100 mg BID PO 03/27/17 09:00 03/27/17 21:47 (Protonix) 40 mg DAILY PO 03/27/17 09:00 03/27/17 10:06 (OxyCONTIN CR) 30 mg Q8HR PO 03/27/17 14:00 03/28/17 08:09 (Lipitor) 40 mg DAILY PO 03/27/17 09:00 03/27/17 10:06 Cefepime HCl 1000 mg/Sodium Chloride 100 ml @ 200 mls/hr Q24H IV 03/27/17 08:00 03/27/17 10:03 (Roxicodone) 5 mg Q8HR PRN PO 03/27/17 14:00 (Rocaltrol) 0.25 mcg MoWeFr PO 03/28/17 21:00 (Vitamin D3) 50,000 units ONCE ONCE PO 03/28/17 08:15 03/28/17 08:16 UNV A/P Assessment and Plan 71-year-old male with history of CKD, HTN, CAD s/p CABG, atrial fibrillation on Eliquis, renal artery stenosis s/p stent, presents with increasing confusion, BLE erythema, and worsening renal function, sent by beater machine operator Acute Renal Failure: with hx of CKD, previous baseline Creatinine around 2, now Cr 4.09. Unclear etiology. -Renal U/S with no hydronephrosis, right renal stent in place; bilateral benign appearing cysts -Given IVF x1L to eval for acute decompensation secondary to dehydration -Monitor for fluid overload, CXR reviewed and clear, BNP wnl, no CHF expected -Consult patient's beater machine operator Dr. Austin, appreciate recommendations, work up in progress -Monitor BMP daily, results pending today -avoid nephrotoxins Bilateral Lower Extremity Cellulitis: BLE with erythema/edema. -Continue on antibiotics with IV Cefepime -symptoms much improved -can likely transition to oral abx tomorrow Atrial Fibrillation: rate currently around 90-100s -continue patient's anticoagulation with Eliquis -continue patient's metoprolol 100mg bid, consider adjusting dosing for better rate control however caution with hypotension CAD/HTN/HLD: chronic, stable -continue home medications including metoprolol, statin -monitor BP All other medical conditions stable, continue home medications as appropriate. DVT Prophylaxis: on Eliquis Kalyn Zamora PA-C Mar 28, 2017 9:12 am
[2017-03-28 12:19] VITALS: BP 100/57; PULSE 88; RESP 18; TEMP 98.3; O2SAT 97
[2017-03-28 16:00] VITALS: BP 125/66; PULSE 92; RESP 18; TEMP 98.8; O2SAT 97
--- NOTE | 2017-03-28 19:24 | HHI.NPPN ---
Subjective History of Present Illness The patient is a 71 yo [place] male who is known to our services for CKD. He present to the office yesterday for early appointment as renal panel drawn on showed worsening of his renal functions. States that in the past month or so he has not been feeling well. confirms the same. He has been more fatigued, developing LE edema, chills, nausea, and poor appetite. He also endorses increased confusion and mental fogginess. For some time, has been experiencing some mid chest pain that he describes as a poking sensation that lasts only a second then resolves. Thought initially it was related to exercising, but started to occur even at rest. Has had cardiac work up in the past that was negative, but decided to order an at home monitoring analyst that picked up episode of atrial fibrillation. He went back to Dr. Sandra on 03/20 and was started on Eliquis 5mg BID. ECG in office there showed NSR. He went to his PCP on 03/22 and was started on Bumex 1mg daily for his LE edema, but did not improve. Had labs drawn on 03/22 that showed a rise in SCr at 3.01 ( baseline 2.3) and he called office for early appointment. On exam yesterday, he had evidence of significant fluid retention. Given his rapid decline and clinical appearance, he was advised to come to the ED for evaluation. 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 Had renal doppler study performed 11/09/16 that was nondiagnostic of restenosis of right renal artery secondary to stent placement and could not rule out left sided stenosis. CTA nor MRA was opted for at that point given severe impairment in renal functions. Incidentally noted was a 1.3cm lesion in left mid-cortex that is noted as complex cyst versus solid mass that was confirmed with noncontrast MRI on 11/14/16; recommended to follow up in 6 months for stability, Started on Cefepime for suspected LE cellulitis. Admitting SCr 4.09 with eGFR at 15. Baseline SCr 2.3 with eGFR 27 Objective Data Data 03/28/17 03/29/17 19:00 07:00 Intake Total 100 ml Balance 100 ml IV Total 100 ml Vital Signs Date Time Temp Pulse Resp B/P (MAP) Pulse Ox O2 Delivery O2 Flow Rate FiO2 03/28/17 16:00 98.8 92 18 125/66 (85) 97 03/28/17 15:37 18 03/28/17 12:19 98.3 88 18 100/57 (71) 97 03/28/17 08:30 98.3 92 20 109/69 (82) 97 03/28/17 03:41 98.5 91 17 100/56 (71) 94 03/27/17 23:33 98.7 92 17 94/61 (72) 94 03/27/17 21:00 91 03/27/17 20:07 98.7 93 16 96/60 (72) 95 -: 03/28/17 0710 03/28/17 0710 Microbiology 03/27/17 Aerobic Blood Culture - Preliminary, Resulted NO GROWTH IN 1 DAY 03/27/17 Anaerobic Blood Culture - Preliminary, Resulted NO GROWTH IN 1 DAY 03/27/17 Aerobic Blood Culture - Preliminary, Resulted NO GROWTH IN 1 DAY 03/27/17 Anaerobic Blood Culture - Preliminary, Resulted NO GROWTH IN 1 DAY Assessment/Plan Problem List: (1) Acute renal failure (ARF) ICD Codes: N17.9 - Acute kidney failure, unspecified Plan: Patient's renal function is showing some signs of improvement hopefully this trend will continue. Continue to hold lisinopril. Acute renal insufficiency may have been related to cellulitis and hemodynamic factors associated with same with concurrent usage of lisinopril but this remains be determined. Await serological studies. Results of in house renal ultrasound noted. Lesion left kidney was previously evaluated by noncontrast CT as indicated below back in November with recommendation for repeat follow-up study 6 months later. This will be performed as an outpatient. Consideration to be given to check CT angiogram as this is a more sensitive and specific test to rule out renal artery stenosis, however, is at higher risk of further renal injury with contrast exposure that may require dialytic intervention. Hold IVF given edema. Will follow with labs in the AM. Medications should be adjusted for CKD. Avoid gadolinium (2) CKD (chronic kidney disease) stage 4, GFR 15-29 ml/min ICD Codes: N18.4 - Chronic kidney disease, stage 4 (severe) Plan: (3) Hypertension ICD Codes: I10 - Essential (primary) hypertension Plan: with hypotension in house. Lisinopril held. Monitor. (4) History of renal artery stenosis ICD Codes: Z86.79 - Personal history of other diseases of the circulatory system Plan: in 2006. 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 Had renal doppler study performed 11/09/16 that was nondiagnostic of restenosis of right renal artery secondary to stent placement and could not rule out left sided stenosis. CTA nor MRA was opted for at that point given severe impairment in renal functions. Incidentally noted was a 1.3cm lesion in left mid-cortex that is noted as complex cyst versus solid mass that was confirmed with noncontrast MRI on 11/14/16 ; recommended to follow up in 6 months for stability, (5) Cellulitis ICD Codes: L03.90 - Cellulitis, unspecified Plan: Tx as per primary BCx ordered (6) Edema ICD Codes: R60.9 - Edema, unspecified Plan: Improved overnight with Furosemide. Will obtain recent echo report done outpatient. May recommend opinion from Dr. Sandra whom the patient is known to. (7) Atrial fibrillation ICD Codes: I48.91 - Unspecified atrial fibrillation Plan: NSR at the present. Started on Eliquis 03/20 (8) Secondary hyperparathyroidism (of renal origin) ICD Codes: N25.81 - Secondary hyperparathyroidism of renal origin Plan: Continue on Calcitriol 0.25mcg [facility]. Giuseppe Austin MD Mar 28, 2017 19:24
[2017-03-28 20:09] VITALS: BP 129/70; PULSE 98; RESP 18; TEMP 98.5; O2SAT 96
[2017-03-28] MEDS ORDERED: CALCITRIOL 0.25 MCG CAP PO SCH (21:00)
[2017-03-28 22:35] LABS: ALBUMIN SPE 3.47 GM/DL (3.50-5.00); ALPHA 1 GLOBULIN 0.33 GM/DL (0.11-0.29); ALPHA 2 GLOBULIN 0.94 GM/DL (0.22-1.00); BETA GLOBULINS (SPE) 0.8 GM/DL (0.53-1.03)
[2017-03-28] MEDS: ALLOPURINOL 100 MG TAB PO SCH (23:04)
[2017-03-28] MEDS: DOXAZOSIN MESYLATE 2 MG TAB PO SCH (23:04)
[2017-03-28] MEDS: DOCUSATE CALCIUM 240 MG CAP PO SCH (23:06)
[2017-03-28 23:38] VITALS: BP 117/58; PULSE 96; RESP 17; TEMP 98.4; O2SAT 91
[2017-03-29] VITALS (7 sets, daily range): BP systolic 107–123; BP diastolic 57–63; PULSE 90–97; RESP 18–20; TEMP 98–98.4; O2SAT 94–98
[2017-03-29] MEDS: oxyCODONE HCL 10 MG CONTROLLED RELEASE TAB PO SCH ×2 (06:00→14:41)
[2017-03-29 07:13] LABS: URINE TOTAL PROTEIN TIMED 25.4 MG/DL
[2017-03-29] MEDS: buPROPion HCL 150 MG SUSTAINED RELEASE TAB PO SCH (09:00)
[2017-03-29] MEDS: PANTOPRAZOLE SOD 40 MG DELAYED RELEASE TAB PO SCH (09:00)
[2017-03-29] MEDS: APIXABAN 5 MG TABLET PO SCH (09:00)
[2017-03-29] MEDS: METOPROLOL TARTRATE 100 MG TAB PO SCH (09:00)
[2017-03-29] MEDS: ATORVASTATIN 40 MG TAB PO SCH (09:00)
[2017-03-29] MEDS: SODIUM CHLORIDE 0.9% FLUSH 10 ML FLUSH IV FLUSH SCH (09:00)
--- NOTE | 2017-03-29 09:04 | HHI.PR ---
Subjective Remarks Follow-up for acute renal failure and cellulitis. The patient is doing well today. He has no acute complaints. Reports good urine output. AAO 4. No fever or chills. Lower extremity redness has significantly improved. He reports his baseline creatinine is around 2.4. Objective Vitals Vital Signs Date Time Temp Pulse Resp B/P (MAP) Pulse Ox O2 Delivery O2 Flow Rate FiO2 03/29/17 08:02 98.4 97 20 107/61 (76) 95 03/29/17 04:00 90 03/29/17 03:49 98.4 93 19 123/57 (79) 95 03/29/17 00:15 92 03/29/17 00:05 12 03/28/17 23:38 98.4 96 17 117/58 (77) 91 03/28/17 20:09 98.5 98 18 129/70 (89) 96 03/28/17 16:00 98.8 92 18 125/66 (85) 97 03/28/17 12:19 98.3 88 18 100/57 (71) 97 I/O 03/28/17 03/28/17 03/28/17 03/29/17 03/29/17 03/29/17 07:00 15:00 23:00 07:00 15:00 23:00 Intake Total 400 ml 100 ml Balance 400 ml 100 ml Intake Oral 400 ml IV Total 100 ml # Voids 4 Result Diagram: 03/28/17 0710 03/28/17 0710 Imaging Last Impressions Renal Ultrasound 03/27/17 0000 Signed Impressions: Service Date/Time: Monday, March 27, 2017 13:41 - CONCLUSION: 1. No evidence of hydronephrosis. Right renal stent in place. 2. There is thinning of the renal parenchyma bilaterally. 3. Bilateral benign-appearing renal cysts. 4. Nonspecific hypoechoic density in the midpole left kidney measuring 1.8 cm. This could be a complex cyst versus mass. There are no prior studies for comparison. Recommend CT scan of the abdomen and pelvis with IV contrast for further evaluation. James Castellon MD Chest X-Ray 03/26/17 0000 Signed Impressions: Service Date/Time: Sunday, March 26, 2017 19:46 - CONCLUSION: No acute disease. Joey Harris MD Objective Remarks GENERAL: Well-developed well-nourished. In no acute distress. SKIN: Warm and dry. Bilateral ankles with small areas of some erythema and warmth. HEENT: Normocephalic. Pupils equal and round. Mucous membranes pink and moist. CARDIOVASCULAR: Regular rate and rhythm. No murmur appreciated. RESPIRATORY: No accessory muscle use. Clear to auscultation. Breath sounds equal bilaterally. GASTROINTESTINAL: Abdomen soft, non-tender, nondistended. Bowel sounds x4. MUSCULOSKELETAL: No obvious deformities. No clubbing or cyanosis. No edema. NEUROLOGICAL: Awake and alert. No focal neurological deficits. Moves upper and lower extremities spontaneously. Normal speech. PSYCHIATRIC: Appropriate mood and affect; insight and judgment normal. A/P Assessment and Plan 71-year-old male with history of CKD, HTN, CAD s/p CABG, atrial fibrillation on Eliquis, renal artery stenosis s/p stent, presents with increasing confusion, BLE erythema, and worsening renal function, sent by tool and die machinist Acute Renal Failure: with hx of CKD, previous baseline Creatinine around 2, now Cr 4.09. Unclear etiology. -Patient initially with some confusion, suspect uremic, improved -Renal U/S with no hydronephrosis, right renal stent in place; bilateral benign appearing cysts -Given IVF x1L to eval for acute decompensation secondary to dehydration -Monitor for fluid overload, CXR reviewed and clear, BNP wnl, no CHF suspected -Consulted patient's tool and die machinist Dr. Austin, appreciate recommendations, work up in progress -24-hour urine with elevated proteinuria -Monitor BMP daily, results pending today -avoid nephrotoxins Bilateral Lower Extremity Cellulitis: BLE with erythema/edema. Afebrile with no leukocytosis. Improved. -Continue IV Cefepime and we'll renally adjust to oral antibiotics after labs today Atrial Fibrillation: rate 90s -continue patient's anticoagulation with Eliquis -BP is soft. Continue patient's metoprolol 100mg bid for now. CAD/HTN/HLD: chronic, stable -continue home medications including metoprolol, statin -monitor BP All other medical conditions stable, continue home medications as appropriate. DVT Prophylaxis: on Eliquis Discharge Planning Monitor for continued improvement in renal dysfunction. Follow-up nephrology recommendations. Danish Rodriguez Mar 29, 2017 09:04
[2017-03-29] MEDS: CEFEPIME INJ 1,000 MG in SODIUM CHLORIDE 0.9% INJ 100 ML IV SCH (09:37)
[2017-03-29 10:11] LABS: BICARBONATE 26.4 MEQ/L (21.0-32.0); POTASSIUM 4.2 MEQ/L (3.5-5.1)
[2017-03-29] MEDS ORDERED: CEPH-460 PO (15:39)
--- NOTE | 2017-03-29 15:44 | HHI.DS ---
Discharge Summary Admission Date Mar 26, 2017 at 22:16 Discharge Date: Mar 29, 2017 Admitting Diagnosis Acute Renal Insufficientcy/Afib (1) Acute renal failure (ARF) ICD Code: N17.9 - Acute kidney failure, unspecified Diagnosis: Principal Status: Acute (2) CKD (chronic kidney disease) stage 4, GFR 15-29 ml/min ICD Code: N18.4 - Chronic kidney disease, stage 4 (severe) Diagnosis: Secondary Status: Chronic (3) Cellulitis ICD Code: L03.90 - Cellulitis, unspecified Diagnosis: Secondary Status: Acute Procedures None Brief History - From Admission was feeling weak was somewhat taking too long to do simple things like balancing checkbook "got stuck" doing simple things has had problems with kidney issues- with creatinine getting skyrocketing was seen by his air marshal and sent here has had cabg in 2006 and not sure whether to do with this or combination of kidney and heart weakness kept continuing no nausea/ no vomiting/ no diarrhea no balck stool or red stool no urination problem no chest pain but did have some shortness of breath- wasnt even sure about it, until someone asked him in er was having dyspnea walking from mailbox to home also c/o bilateral LE swelling at ankles and lower lee with some redness and pitting edema c/o if only during physical exam- was forgetting to mention prior no on antibiotics no trauma CBC/BMP: 03/28/17 0710 03/29/17 0837 Significant Findings Laboratory Tests Test 03/26/17 20:05 03/26/17 20:54 03/27/17 07:39 03/27/17 07:57 Mean Corpuscular Volume 79.4 FL (80.0-100.0) 78.8 FL (80.0-100.0) Mean Corpuscular Hemoglobin 25.2 PG (27.0-34.0) 25.6 PG (27.0-34.0) Mean Corpuscular Hemoglobin Concent 31.8 % (32.0-36.0) Monocytes (%) (Auto) 9.3 % (0.0-8.0) 9.4 % (0.0-8.0) Prothrombin Time 12.6 SEC (9.8-11.6) Activated Partial Thromboplast Time 33.8 SEC (24.3-30.1) Blood Urea Nitrogen 25 MG/DL (7-18) 25 MG/DL (7-18) Creatinine 4.09 MG/DL (0.60-1.30) 3.88 MG/DL (0.60-1.30) Albumin 2.9 GM/DL (3.4-5.0) Estimat Glomerular Filtration Rate 15 ML/MIN (>89) 15 ML/MIN (>89) Urine Turbidity HAZY (CLEAR) Urine Bacteria RARE /hpf (NONE) Urine Mucus FEW /lpf (OCC) Urine Random Total Protein 46 MG/DL (0-11.8) Urine Protein/Creatinine Ratio 0.29 (0.00-0.14) Hemoglobin 12.7 GM/DL (13.0-17.0) Platelet Count 144 TH/MM3 (150-450) Test 03/27/17 22:02 03/27/17 22:30 03/28/17 07:10 03/28/17 22:00 Albumin 3.47 GM/DL (3.50-5.00) 2.8 GM/DL (3.4-5.0) Albumin/Globulin Ratio 1.18 (1.39-2.23) Sbzps-7-Ldskzrnqh 0.33 GM/DL (0.11-0.29) Parathyroid Hormone (Intact) 144.1 PG/ML (12.4-76.8) Mean Corpuscular Volume 78.7 FL (80.0-100.0) Mean Corpuscular Hemoglobin 25.6 PG (27.0-34.0) Platelet Count 148 TH/MM3 (150-450) Blood Urea Nitrogen 26 MG/DL (7-18) Creatinine 3.60 MG/DL (0.60-1.30) Estimat Glomerular Filtration Rate 17 ML/MIN (>89) Urine Total Protein 24 Hour 495 MG/24HR (0-150) Test 03/29/17 08:37 Blood Urea Nitrogen 21 MG/DL (7-18) Creatinine 3.02 MG/DL (0.60-1.30) Estimat Glomerular Filtration Rate 21 ML/MIN (>89) Imaging Last Impressions Renal Ultrasound 03/27/17 0000 Signed Impressions: Service Date/Time: Monday, March 27, 2017 13:41 - CONCLUSION: 1. No evidence of hydronephrosis. Right renal stent in place. 2. There is thinning of the renal parenchyma bilaterally. 3. Bilateral benign-appearing renal cysts. 4. Nonspecific hypoechoic density in the midpole left kidney measuring 1.8 cm. This could be a complex cyst versus mass. There are no prior studies for comparison. Recommend CT scan of the abdomen and pelvis with IV contrast for further evaluation. James Castellon MD Chest X-Ray 03/26/17 0000 Signed Impressions: Service Date/Time: Sunday, March 26, 2017 19:46 - CONCLUSION: No acute disease. Joey Harris MD PE at Discharge GENERAL: Well-developed well-nourished. In no acute distress. SKIN: Warm and dry. Bilateral ankles with small areas of some erythema and warmth. HEENT: Normocephalic. Pupils equal and round. Mucous membranes pink and moist. CARDIOVASCULAR: Regular rate and rhythm. No murmur appreciated. RESPIRATORY: No accessory muscle use. Clear to auscultation. Breath sounds equal bilaterally. GASTROINTESTINAL: Abdomen soft, non-tender, nondistended. Bowel sounds x4. MUSCULOSKELETAL: No obvious deformities. No clubbing or cyanosis. No edema. NEUROLOGICAL: Awake and alert. No focal neurological deficits. Moves upper and lower extremities spontaneously. Normal speech. PSYCHIATRIC: Appropriate mood and affect; insight and judgment normal. Pt update on day of discharge Renal function continues to improve today. Discussed with nephrology, discontinue lisinopril, clear for discharge and outpatient follow-up with them. We'll continue course of Keflex at discharge. Hospital Course 71-year-old male with history of CKD, HTN, CAD s/p CABG, atrial fibrillation on Eliquis, renal artery stenosis s/p stent, presents with increasing confusion, BLE erythema, and worsening renal function, sent by air marshal Acute Renal Failure: with hx of CKD, previous baseline Creatinine around 2.4, now Cr 4.09. Unclear etiology. -Patient initially with some confusion, suspect uremic, improved -Renal U/S with no hydronephrosis, right renal stent in place; bilateral benign appearing cysts -Consulted patient's air marshal Dr. Austin, appreciate recommendations, work up in progress, recommends outpatient follow-up -24-hour urine with elevated proteinuria -Creatinine continued to trend down during admission from 4.09 to 3.02 -avoid nephrotoxins, discontinue lisinopril Bilateral Lower Extremity Cellulitis: BLE with erythema/edema. Afebrile with no leukocytosis. Improved. -Received IV cefepime 3, continue course of oral Keflex 5 days Pt Condition on Discharge: Stable Discharge Disposition: Discharge Home Discharge Time: > 30 minutes Discharge Instructions DIET: Follow Instructions for: Renal Failure Diet Activities you can perform: Regular-No Restrictions Follow up Referrals: Nephrology - 1 Week with Giuseppe Austin MD PCP Follow-up - 1 Week with Ernst Hernandez M.d. New Medications: Cephalexin (Keflex) 500 Mg Capsule 500 MG PO Q12HR for Infection, #10 CAP 0 Refills Continued Medications: Allopurinol (Allopurinol) 100 Mg Tab 100 MG PO HS for Gout, #30 TAB 0 Refills Apixaban (Eliquis) 5 Mg Tab 5 MG PO BID for Blood Clot Prevention, #60 TAB 0 Refills Bupropion HCl ER 12 HR (Wellbutrin SR 12 HR) 150 Mg Tab 150 MG PO Q12HR for Control Depression, TAB 0 Refills Calcitriol (Calcitriol) 0.25 Mcg Cap 0.25 MCG PO MWF for Calcium Supplement, #30 CAP 0 Refills Cholecalciferol (Vitamin D3) 2,000 Unit Cap 2000 UNITS PO DAILY for Nutritional Supplement, #56 CAP 0 Refills Docusate Calcium (Stool Softener) 240 Mg Cap 250 MG PO HS Doxazosin (Doxazosin) 2 Mg Tab 2 MG PO HS, #30 TAB 0 Refills Lorazepam (Lorazepam) 0.5 Mg Tab 0.5 MG PO Q8H PRN for ANXIETY, TAB 0 Refills Metoprolol Tartrate (Metoprolol Tartrate) 100 Mg Tab 100 MG PO BID, #60 TAB 0 Refills Oxycodone (Oxycodone) 5 Mg Tab 5 MG PO Q8HR for Pain Management, TAB 0 Refills Oxycodone ER (Oxycontin) 30 Mg Tab 30 MG PO Q8HR for Pain Management, TAB 0 Refills Pantoprazole (Pantoprazole) 40 Mg Tab 40 MG PO DAILY for Reflux, #30 TAB 0 Refills Rosuvastatin (Crestor) 20 Mg Tab 20 MG PO DAILY for Cholesterol Management, #30 TAB 0 Refills Testosterone Topical (Testosterone Topical) 50 Mg/5 Gram (1 %) Gel 100 MG TOPICAL DAILY for Hormone Replacement, #1 TUBE 0 Refills Discontinued Medications: Lisinopril (Lisinopril) 5 Mg Tab 5 MG PO DAILY for Blood Pressure Management, #30 TAB 0 Refills Danish Rodriguez Mar 29, 2017 15:44
--- NOTE | 2017-03-29 15:57 | HHI.NPPN ---
Subjective History of Present Illness The patient is a 71 yo [place] male who is known to our services for CKD. He present to the office yesterday for early appointment as renal panel drawn on showed worsening of his renal functions. States that in the past month or so he has not been feeling well. confirms the same. He has been more fatigued, developing LE edema, chills, nausea, and poor appetite. He also endorses increased confusion and mental fogginess. For some time, has been experiencing some mid chest pain that he describes as a poking sensation that lasts only a second then resolves. Thought initially it was related to exercising, but started to occur even at rest. Has had cardiac work up in the past that was negative, but decided to order an at home monitor tech that picked up episode of atrial fibrillation. He went back to Dr. Sandra on 03/20 and was started on Eliquis 5mg BID. ECG in office there showed NSR. He went to his PCP on 03/22 and was started on Bumex 1mg daily for his LE edema, but did not improve. Had labs drawn on 03/22 that showed a rise in SCr at 3.01 ( baseline 2.3) and he called office for early appointment. On exam yesterday, he had evidence of significant fluid retention. Given his rapid decline and clinical appearance, he was advised to come to the ED for evaluation. 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 Had renal doppler study performed 11/09/16 that was nondiagnostic of restenosis of right renal artery secondary to stent placement and could not rule out left sided stenosis. CTA nor MRA was opted for at that point given severe impairment in renal functions. Incidentally noted was a 1.3cm lesion in left mid-cortex that is noted as complex cyst versus solid mass that was confirmed with noncontrast MRI on 11/14/16; recommended to follow up in 6 months for stability, Started on Cefepime for suspected LE cellulitis. Admitting SCr 4.09 with eGFR at 15. Baseline SCr 2.3 with eGFR 27 Interval History Pt feeling much better today Edema resolved Appetite improving Is anxious to go home Objective Data Data 03/29/17 03/30/17 19:00 07:00 Intake Total 100 ml Balance 100 ml IV Total 100 ml Vital Signs Date Time Temp Pulse Resp B/P (MAP) Pulse Ox O2 Delivery O2 Flow Rate FiO2 03/29/17 15:45 20 03/29/17 15:24 98.4 92 18 107/63 (78) 94 03/29/17 12:20 98.0 92 20 115/62 (79) 98 03/29/17 08:02 98.4 97 20 107/61 (76) 95 03/29/17 04:00 90 03/29/17 03:49 98.4 93 19 123/57 (79) 95 03/29/17 00:15 92 03/28/17 23:38 98.4 96 17 117/58 (77) 91 03/28/17 20:09 98.5 98 18 129/70 (89) 96 03/28/17 16:00 98.8 92 18 125/66 (85) 97 -: 03/28/17 0710 03/29/17 0837 Imaging Last Impressions Renal Ultrasound 03/27/17 0000 Signed Impressions: Service Date/Time: Monday, March 27, 2017 13:41 - CONCLUSION: 1. No evidence of hydronephrosis. Right renal stent in place. 2. There is thinning of the renal parenchyma bilaterally. 3. Bilateral benign-appearing renal cysts. 4. Nonspecific hypoechoic density in the midpole left kidney measuring 1.8 cm. This could be a complex cyst versus mass. There are no prior studies for comparison. Recommend CT scan of the abdomen and pelvis with IV contrast for further evaluation. James Castellon MD Chest X-Ray 03/26/17 0000 Signed Impressions: Service Date/Time: Sunday, March 26, 2017 19:46 - CONCLUSION: No acute disease. Joey Harris MD Medication Review Current Medications Medications (Trade) Dose Ordered Sig/Argenis Route Start Time Stop Time Status Last Admin (NS Flush) 2 ml UNSCH PRN IVF 03/26/17 20:00 (NS Flush) 2 ml UNSCH PRN IV FLUSH 03/26/17 22:15 (NS Flush) 2 ml BID IV FLUSH 03/27/17 09:00 03/29/17 09:00 (Narcan Inj) 0.4 mg UNSCH PRN IV PUSH 03/26/17 22:15 (Zyloprim) 100 mg HS PO 03/27/17 21:00 03/28/17 23:04 (Eliquis) 5 mg BID PO 03/27/17 09:00 03/29/17 09:00 (Wellbutrin Sr) 150 mg Q12HR PO 03/27/17 09:00 03/29/17 09:00 (Cardura) 2 mg HS PO 03/27/17 21:00 03/28/17 23:04 (Ativan) 0.5 mg Q8H PRN PO 03/27/17 06:45 (Lopressor) 100 mg BID PO 03/27/17 09:00 03/29/17 09:00 (Protonix) 40 mg DAILY PO 03/27/17 09:00 03/29/17 09:00 (OxyCONTIN CR) 30 mg Q8HR PO 03/27/17 14:00 03/29/17 14:41 (Lipitor) 40 mg DAILY PO 03/27/17 09:00 03/29/17 09:00 Cefepime HCl 1000 mg/Sodium Chloride 100 ml @ 200 mls/hr Q24H IV 03/27/17 08:00 03/29/17 09:37 (Roxicodone) 5 mg Q8HR PRN PO 03/27/17 14:00 (Rocaltrol) 0.25 mcg MoWeFr PO 03/28/17 21:00 03/28/17 23:04 (Surfak) 240 mg HS PO 03/29/17 21:00 Physical Exam General Appearance: Well Developed, Well Nourished, No Acute Distress Throat Throat Exam: Oral Mucosa [place] & Moist Neck Neck Exam: Neck Supple, Trachea Midline Pulmonary Resp Exam: Clear Bilaterally, Breath Sounds Equal Cardiology CV Exam: Regular, Normal Sinus Rhythm Gastrointestinal/Abdomen GI Exam: Soft, Non-Tender Integumentary Skin Exam: Clear, Warm, Dry Extremeties Extremities Exam: No Edema Neurologic Neuro Exam: Alert, Awake, Oriented Psychiatric Psych Exam: Appropriate Responses Assessment/Plan Problem List: (1) Acute renal failure (ARF) ICD Codes: N17.9 - Acute kidney failure, unspecified Status: Acute Plan: Pt renal functions slowly approaching baseline. Etiology of ARF still not entirely clear---stenosis versus cholesterol emboli, versus other? He is to continue o hold ACEi as well as Bumex To repeat renal panel in 1 week and d/u in office next Thurs. Hopefully all screening tests will have resulted by that point. Consideration to be given to perform CTA as outpatient to r/o stenosis, but this is to be determined. Will f/u on renal lesion as outpatient. Pt already aware of results and knows to f/u on this. OK to be discharged from renal POV. Medications should be adjusted for CKD. Avoid gadolinium (2) CKD (chronic kidney disease) stage 4, GFR 15-29 ml/min ICD Codes: N18.4 - Chronic kidney disease, stage 4 (severe) Status: Chronic Plan: (3) Hypertension ICD Codes: I10 - Essential (primary) hypertension Plan: with hypotension in house. Continue to hold Lisinopril as outpatient as well as Bumetanide (4) History of renal artery stenosis ICD Codes: Z86.79 - Personal history of other diseases of the circulatory system Plan: in 2006. 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 Had renal doppler study performed 11/09/16 that was nondiagnostic of restenosis of right renal artery secondary to stent placement and could not rule out left sided stenosis. CTA nor MRA was opted for at that point given severe impairment in renal functions. Incidentally noted was a 1.3cm lesion in left mid-cortex that is noted as complex cyst versus solid mass that was confirmed with noncontrast MRI on 11/14/16 ; recommended to follow up in 6 months for stability, (5) Cellulitis ICD Codes: L03.90 - Cellulitis, unspecified Status: Acute Plan: Tx as per primary BCx ordered (6) Edema ICD Codes: R60.9 - Edema, unspecified Plan: Resolved Hold diuretic (7) Atrial fibrillation ICD Codes: I48.91 - Unspecified atrial fibrillation Plan: NSR at the present. Started on Eliquis 03/20 (8) Secondary hyperparathyroidism (of renal origin) ICD Codes: N25.81 - Secondary hyperparathyroidism of renal origin Plan: Continue on Calcitriol 0.25mcg MWF. Problem Qualifiers (1) Acute renal failure (ARF): Qualified Codes: N17.9 - Acute kidney failure, unspecified Tracey Webb Mar 29, 2017 15:57
[2017-03-29] MEDS ORDERED: DOCUSATE CALCIUM 240 MG CAP PO SCH (21:00)
[2017-03-30 19:52] LABS: MYELOPEROXIDASE LESS THAN 1.0 AI (<1.0); PROTEINASE-3 LESS THAN 1.0 AI (<1.0)
[2017-03-31 03:51] LABS: KAPPA/LAMBDA FREE 1.3 (0.26-1.65)
== END 2017-03-29 16:30 | disposition home or self-care (01) ==
LOC: NEPE 17:44 → NEDA 22:16 → NEPGCP 22:56
PROVIDERS: ADMIT Hospitalist; ATTEND Hospitalist
DX: N28.9 Disorder of kidney and ureter, unspecified (principal); I12.9 Hypertensive chronic kidney disease with stage 1 through stage 4 chronic kidney disease, or unspecified chronic kidney disease; N18.4 Chronic kidney disease, stage 4 (severe); L03.115 Cellulitis of right lower limb; L03.116 Cellulitis of left lower limb; I95.9 Hypotension, unspecified; E86.0 Dehydration; R80.9 Proteinuria, unspecified; R06.02 Shortness of breath; R53.1 Weakness; N17.9 Acute kidney failure, unspecified; N25.81 Secondary hyperparathyroidism of renal origin; R68.83 Chills (without fever); R11.0 Nausea; R94.31 Abnormal electrocardiogram [ECG] [EKG]; R79.89 Other specified abnormal findings of blood chemistry; R60.0 Localized edema; I48.91 Unspecified atrial fibrillation; I25.10 Atherosclerotic heart disease of native coronary artery without angina pectoris; I25.2 Old myocardial infarction; E78.00 Pure hypercholesterolemia, unspecified; K21.9 Gastro-esophageal reflux disease without esophagitis; N28.1 Cyst of kidney, acquired; I47.1 Supraventricular tachycardia; G47.33 Obstructive sleep apnea (adult) (pediatric); Z86.79 Personal history of other diseases of the circulatory system; Z79.899 Other long term (current) drug therapy; Z95.1 Presence of aortocoronary bypass graft; Z79.01 Long term (current) use of anticoagulants; Z87.891 Personal history of nicotine dependence
CPT/HCPCS: 71020; 76775; 80048; 80053; 80069; 81001; 81050; 82306; 82550; 82552; 82570; 82784; 83735; 83880; 83883; 83970; 84100; 84156; 84165; 84166; 84484; 85025; 85027; 85610; 85730; 86021; 86038; 86160; 86334; 87040; 87205; 93005; 96365; 96366; 96375; 97161; 99285; G0378; G8987; G8988; J0692; J1940; J7030

== ENCOUNTER → 2017-08-10 | Outpatient (CLI) | payer MEDICARE ==
[~2017-08-10] MED LIST: ALLO100T PO; APIX5TAB PO; BUPR150CR PO; CALC0.25 PO; CEPH-460 PO; DOCU1CAP25 PO; DOXA1TAB35 PO; LORA0.5T PO; METO100T PO; OXYC-392 PO; OXYC30TA62 PO; PANT40TA3 PO; ROSU20 PO; TEST2.5G TOPICAL; VITA2000 PO
--- NOTE | 2017-08-10 15:59 | RADRPT ---
EXAM DATE/TIME: 08/10/2017 10:01 [facility] COMPARISON : No previous studies available for comparison. 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 He has declined partial nephrectomy. MRI exam dated 06/12/2017 was reviewed. Thi s demonstrates a 1.9 cm exophytic cystic renal mass in the left posterior mid renal pole enlarged fro m 1.3 cm on examination of 11/14/2016. Renal nephrectomy score 5 (R1, E1, N1, P, L2). Technically, this lesion is very amenable to percutaneous biopsy and cryoablation. Patient will be scheduled for the [facility]. Camilo Abdalla MD on August 10, 2017 at 15:48 Board Certified Radiologist. This report was verified electronically.
== END ==
LOC: HRAD 09:10
PROVIDERS: ATTEND Urology
DX: N28.1 Cyst of kidney, acquired (principal)

== ENCOUNTER 2017-08-27 13:15 | Day surgery (SDC) | payer MEDICARE ==
[2017-08-27 13:32] VITALS: BP 142/77; PULSE 85; RESP 20; TEMP 97.9; O2SAT 96
[2017-08-27] MEDS ORDERED: bumex (13:40)
[2017-08-27] MEDS ORDERED: CO Q10CA PO (13:42)
[2017-08-28] MEDS ORDERED: BUME0.5T PO (10:40)
--- NOTE | 2017-08-28 15:23 | RADRPT ---
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 He has no complaints and denies any hematuria, flank pain, or intentional weight loss. PAST MEDICAL HISTORY : 1. AFIB 2. Hypercholesterolemia. 3. Hypertension. 4. Sleep apnea. 5. Renal failure, chronic. 6. PAST SURGICAL HISTORY : 1. CABG 2. Cholecystectomy. 3. RIGHT RENAL ARTERY STENT 4. RIGHT HAND SURGERY 5. RIGHT KNEE SURGERY SOCIAL HISTORY : No alcohol use. Tobacco;none. ALLERGIES: 1. NKDA MEDICATIONS: 1. WELLBUTRIN SR 150 mg b.i.d. 2. METOPROLOL 100 mg b.i.d. 3. Eliquis (Apixaban) 5 mg b.i.d. 4. CRESTOR 20 mg q.d. 5. ALLOPURINOL 100 mg q.h.s. 6. PANTOPRAZOLE 40 mg q.d. 7. OXYCODONE 5 mg prn 8. OXYCODONE ER 30 mg prn 9. LORAZEPAM 0.5 mg prn 10. BUMEX 0.5 mg q.d. PHYSICAL EXAMINATION: General: No acute distress Abdomen: Soft, nontender nondistended IMAGING STUDIES: Ultrasound exam dated 03/27/2017 demonstrates a 1.8 cm hypoechoic lesion in the mid left kidney which corresponds to a heterogeneous lobulated mass on nonenhanced MRI examination of 06/12/2017 measuring u p to 2 cm. ASSESSMENT: 71-year-old male with stage IV renal insufficiency and enlarging indeterminate mass in the mid left k idney R.E.N.A.L. score of 7 (R1, E2, N2, P, L2). This lesion is amenable to biopsy and cryoablation. Extensive discussion regarding risks and benefits of cryoablation. All questions were answered. PLAN: Biopsy with cryoablation. TIME SPENT: 30 minutes Camlio Abdalla MD on August 28, 2017 at 15:09 Board Certified Radiologist. This report was verified electronically.
== END 2017-08-27 14:30 | disposition home or self-care (01) ==
LOC: HRIP 13:15 → HROP 13:15
PROVIDERS: ATTEND Urology
DX: C64.2 Malignant neoplasm of left kidney, except renal pelvis (principal)

== ENCOUNTER 2017-09-11 06:42 | Day surgery (SDC) | payer MEDICARE ==
[~2017-09-11] VITALS: Ht 172.7 cm; Wt 78.2 kg
[~2017-09-11 06:42] MED LIST changes: +BUME0.5T PO; -CEPH-460 PO; +CO Q10CA PO
[2017-09-11 07:06] VITALS: BP 129/74; PULSE 88; RESP 20; TEMP 98; O2SAT 94
[2017-09-11] MEDS ORDERED: POVIDONE IODINE 5% (ANTISEPSIS KIT) 4 APPLICATIONS EACH NARE PRN (07:15)
[2017-09-11] MEDS ORDERED: SODIUM CHLOR 0.9% 1000 ML INJ 1,000 ML IV SCH (07:15)
[2017-09-11] MEDS ORDERED: LACTATED RINGER'S 1000 ML IV PRN (07:15)
[2017-09-11] MEDS ORDERED: METOPROLOL TARTRATE 25 MG TAB PO PRN (07:15)
[2017-09-11] MEDS ORDERED: SODIUM CHLORID 0.9% 500 ML IV PRN (07:15)
[2017-09-11] MEDS ORDERED: CHLORHEXIDINE GLUCONATE 2 % 1 PACK (2 CLOTHS) TOPICAL PRN (07:15)
[2017-09-11] MEDS ORDERED: CEFAZOLIN INJ 2,000 MG in SODIUM CHLORIDE 0.9% INJ 100 ML IV SCH (08:30)
[2017-09-11] MEDS ORDERED: oxyCODONE/ACETAMINOPHEN 5 MG/325 MG TAB PO PRN (11:15)
--- NOTE | 2017-09-11 11:18 | PD.RAD ---
Post CT Procedure Prog Note Pre Procedure Diagnosis: (1) Renal mass (2) CKD (chronic kidney disease) stage 4, GFR 15-29 ml/min Post Procedure Diagnosis: (1) Renal mass (2) CKD (chronic kidney disease) stage 4, GFR 15-29 ml/min Procedure Date: Sep 11, 2017 Supervising Radiologist: Camilo Abdalla Anesthesia: General Plan of Activity Patient to Unit: PACU Patient Condition: Good See PACS Report for procedural detail/treatment Camilo Abdalla MD Sep 11, 2017 11:18
[2017-09-11] MEDS ORDERED: MIDAZOLAM HCL 2 MG/2 ML VIAL ONE (11:43)
[2017-09-11] MEDS ORDERED: DO NOT ADM ANY ANTICOAGULANT DRUGS PRN (11:46)
[2017-09-11 12:17] LABS: HEMOGLOBIN 11.5 GM/DL (13.0-17.0)
[2017-09-11 12:50] VITALS: BP 138/78; PULSE 80; RESP 18; TEMP 98; O2SAT 93
[2017-09-11 13:20] VITALS: BP 161/85; PULSE 79; RESP 18; O2SAT 93
[2017-09-11 13:50] VITALS: BP 140/79; PULSE 75; RESP 16; O2SAT 94
[2017-09-11 14:50] VITALS: BP 148/82; PULSE 82; RESP 16; O2SAT 96
[2017-09-11 15:24] LABS: HEMOGLOBIN 12.5 GM/DL (13.0-17.0)
--- NOTE | 2017-09-11 16:36 | EKG ---
Date Performed: 09/11/2017 Time Performed: 07:37:48 PTAGE: 71 years EKG: Sinus rhythm BORDERLINE LEFT AXIS DEVIATION MINIMAL VOLTAGE CRITERIA FOR LVH, CONSIDER NORMAL VARIANT Since previ ous tracing, no significant change noted BORDERLINE ECG PREVIOUS TRACING : 03/26/2017 20.11 DOCTOR: Marcos Dominguez Interpretating Date/Time 09/11/2017 16:34:30
--- NOTE | 2017-09-11 16:58 | RADRPT ---
EXAM DATE/TIME: 09/11/2017 10:12 [facility] COMPARISON: No previous studies available for comparison. 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 Patient presents for biopsy and abl ation. BIOPSY SITE: Left renal Anesthesia and pain control was provided by the Anesthesia department. Prophylactic antibiotics were administered with appropriate pre-procedure timing. DEVICE(S): 1.) 18 gauge [employer] MEDICAL HISTORY : Hypertension. Cardiovascular disease. SURGICAL HISTORY : Cholecystectomy CABG ENCOUNTER: Initial ACUITY: 1 day PAIN SCORE: Non-responsive LOCATION: Left Renal A total of one core specimen(s) were obtained and sent to the laboratory for pathologic evaluation. PROCEDURE: 1. CT guided renal biopsy. . Prior to the procedure informed consent was obtained. Any appropriate prior imaging studies were rev iewed. Using automated exposure control and adjustment of the mA and/or kV according to patient size, radiat ion dose was kept as low as reasonably achievable to obtain optimal diagnostic quality images. DICOM format image data is available electronically for review and comparison. The site was prepped in a sterile fashion. Full sterile technique was used, including cap, mask, maninder rile gloves and gown and a large sterile sheet. Hand hygiene and 2% chlorhexidine and/or betadine/al cohol prep was utilized per protocol for cutaneous antisepsis. The skin and subcutaneous tissues wer e infiltrated with local anesthetic solution. With CT guidance the previously identified target was localized. Biopsy was performed using the presc ribed needle as above. Adequate hemostasis was obtained with compression at the puncture site. Follow-up CT scan reveals no hemorrhage. The patient tolerated the procedure well and there were no complications. The patient was returned to the Radiology Outpatient Unit in stable condition. CONCLUSION: 1. Uncomplicated CT guided biopsy. 2. This procedure was performed in combination with cryoablation. Please see report for details. Camilo Abdalla MD on September 11, 2017 at 16:53 Board Certified Radiologist. This report was verified electronically.
--- NOTE | 2017-09-11 16:59 | RADRPT ---
EXAM DATE/TIME: 09/11/2017 10:12 INDICATIONS : 71-year-old male with history of stage IV chronic renal insufficiency and enlarging cystic renal lesi on in the mid left kidney consistent for cystic neoplasm. Patient presents for biopsy and ablation. Anesthesia and pain control was provided by the Anesthesia department. DEVICE(S): 1.) Cryoablation probe MEDICAL HISTORY : Hypertension. Cardiovascular disease. SURGICAL HISTORY : CABG Cholecystectomy. ENCOUNTER: Initial ACUITY: 1 day PAIN SCORE: Non-responsive LOCATION: Left Renal PROCEDURE : 1. CT guided cryoablation. Under sterile conditions and using aseptic technique with CT guidance the mass was localized and sati sfactory approach was taken to access the lesion. Using automated exposure control and adjustment of the mA and/or kV according to patient size, radiation dose was kept as low as reasonably achievable to obtain optimal diagnostic quality images. DICOM format image data is available electronically for review and comparison. [employer] Cryoprobes were employed using percutaneous technique employing the prescribed probes. A freeze-thaw, freeze-thaw technique was employed and serial imaging demonstrated an ice ball encomp assing the entire lesion. Post procedure images demonstrate expected postoperative changes without e vidence of hematoma. CONCLUSION: Uncomplicated cryoablation as above. Camilo Abdalla MD on September 11, 2017 at 16:56 Board Certified Radiologist. This report was verified electronically.
== END 2017-09-11 16:00 | disposition home or self-care (01) ==
LOC: HROP 06:42 → HRIP 06:43 → HROP 16:00
PROVIDERS: ATTEND Urology
DX: C64.2 Malignant neoplasm of left kidney, except renal pelvis (principal); I12.9 Hypertensive chronic kidney disease with stage 1 through stage 4 chronic kidney disease, or unspecified chronic kidney disease; N18.4 Chronic kidney disease, stage 4 (severe); I25.10 Atherosclerotic heart disease of native coronary artery without angina pectoris; Z95.1 Presence of aortocoronary bypass graft
CPT/HCPCS: 50200; 50593; 77012; 77013; 85014; 85018; 88305; 93005; J2250; J3010